=== PATIENT | female | born 1965 | race Caucasian/White ===

== ENCOUNTER 2020-12-07 11:05 | Outpatient (REF) | payer OTHER, MEDICAID, SELFPAY ==
[2020-12-07 14:05] LABS: Hematocrit 41.2 % (37-47); Hemoglobin 13.2 g/dl (12.0-16.0); Mean Corpuscular Hemoglobin 30.8 pg (27.0-33.0); Mean Corpuscular Volume 96.3 fL (80-98); Platelet Count 239 X10*3/uL (160-400); Red Blood Count 4.28 X10*6/uL (4.20-5.50); Red Cell Distribution Width 12.5 % (11.0-16.0); White Blood Count 6.4 X10*3/uL (4.8-10.8)
[2020-12-07 14:50] LABS: Alanine Aminotransferase 13 U/L (0-31); Albumin Level 4.3 g/dL (3.5-5.0); Alkaline Phosphatase 63 U/L (39-117); Anion Gap 11 (12-20); Aspartate Amino Transferase 14 U/L (5-31); Bilirubin Direct 0.2 mg/dL (0.0-0.5); Bilirubin Total 0.7 mg/dL (0.0-1.0); Blood Urea Nitrogen 18 mg/dL (9-16); Calcium 9.3 mg/dL (8.4-10.2); Carbon Dioxide 30 mmol/L (22-29); Chloride 103 mmol/L (96-108); Cholesterol 176 mg/dL; Estimated Glomerular Filt Rate > 60; Glucose Fasting 91 mg/dL (60-99); HDL Cholesterol 84 mg/dL; LDL Cholesterol Calculated 82 mg/dl; Potassium 4.6 mmol/L (3.3-5.1); Sodium 139 mmol/L (135-145); Total Protein 6.9 g/dL (6.5-8.0); Triglycerides 54 mg/dL
[2020-12-07 14:58] LABS: TSH reflex Free T4 0.63 uIU/mL (0.32-4.0)
[2020-12-07 15:05] LABS: Folate > 20.0 ng/mL (> or = 4.0); Vitamin B12 1211 pg/mL (200-900)
== END 2020-12-07 11:06 | disposition home or self-care (01) ==
LOC: HO.WFDLDS 11:05
PROVIDERS: Visit Provider Hospitalist
DX: Z00.00 Encounter for general adult medical examination without abnormal findings (principal); R53.83 Other fatigue
CPT/HCPCS: 36415; 80048; 80061; 80076; 82607; 82746; 84443; 85027

== ENCOUNTER 2021-10-09 18:57 | Outpatient (REF) | payer OTHER, SELFPAY ==
[2021-10-09 20:17] LABS: Influenza A PCR NEGATIVE (Negative); Influenza B PCR NEGATIVE (Negative); Resp Syncy Virus RNA Qual PCR POSITIVE (Negative); SARS COV2 PCR INHOUSE NEGATIVE (Negative)
== END 2021-10-09 18:58 | disposition home or self-care (01) ==
LOC: HO.LNP 18:57
PROVIDERS: Visit Provider Family Medicine
DX: Z20.822 Contact with and (suspected) exposure to COVID-19 (principal); B34.9 Viral infection, unspecified
CPT/HCPCS: 0241U

== ENCOUNTER 2022-01-19 16:10 | Outpatient (REF) | payer OTHER, SELFPAY ==
--- NOTE | ~2022-01-19 | MM_ITS ---
EXAMINATION: MM SCREENING DIGITAL BREAST TOMOSYNTHESIS, BILATERAL CLINICAL INFORMATION: Screening. Asymptomatic. The lifetime risk of breast cancer based on the Tyrer-Cuzick Model is 9%. COMPARISON: Outside mammography: 01/06/2019, 06/05/2017 ([facility]) TECHNIQUE: Digital breast tomosynthesis is performed in both the craniocaudal and mediolateral oblique views along with computer-aided detection (CAD). Synthesized 2D images are generated from the tomosynthesis. FINDINGS: The breasts are heterogeneously dense, which may obscure small masses (ACR BI-RADS breast composition Category c). Parenchymal pattern is similar to prior outside studies. There are scattered bilateral asymmetries and shifting fibroglandular parenchymal densities overall similar to prior studies. There is no significant mass or architectural abnormality. No developing density. Scattered punctate calcifications are again seen in each breast. There is benign coarse calcification retroareolar right breast and posterior upper outer right breast, suggesting degenerating fibroadenomas. There is also a biopsy clip marker mid upper outer right breast. The axilla and skin contours are unremarkable. MM/MM tomosynthesis screening BI IMPRESSION: No significant changes from prior outside studies. ASSESSMENT: BI-RADS 2: Benign RECOMMENDATION: Routine annual mammography screening. This patient's information was entered into a reminder system with a target due date for their next mammogram.
== END 2022-01-19 16:11 | disposition home or self-care (01) ==
LOC: HO.MAMMO 16:10
PROVIDERS: PCP Family Medicine; Visit Provider Family Medicine
DX: Z12.31 Encounter for screening mammogram for malignant neoplasm of breast (principal)
CPT/HCPCS: 77063; 77067

== ENCOUNTER 2022-06-23 12:04 | Outpatient (REF) | payer OTHER, SELFPAY ==
[2022-06-23 13:08] LABS: MANUAL DIFF FLAG NO
[2022-06-23 13:11] LABS: Appearance Urine Clear; Color Urine Yellow; Glucose Urine UA Negative (Negative); Leukocyte Esterase Urine Small (1+) (Negative); Nitrite Urine Negative (Negative); PH 5.5 (5.0-9.0); Specific Gravity - Urine 1.025 (1.005-1.025); UMIC TRIGGER UA YES; Urine Blood Negative (Negative); Urine Ketones Trace mg/dL (Negative); Urine Protein Negative (Neg-Trace)
[2022-06-23 13:13] LABS: Basophils Absolute Auto 0.1 X10*3/uL (0.0-0.2); Basophils Percent Auto 0.8 % (0-2); Eosinophils Absolute Auto 0.1 X10*3/uL (0.0-0.4); Eosinophils Percent Auto 1.3 % (0-4); Hematocrit 40.9 % (37.0-47.0); Hemoglobin 13.4 g/dl (12.0-16.0); Imm Gran Abs Auto 0.02 X10*3/uL (0.00-0.03); Imm Gran Pct Auto 0.3 % (0.0-0.4); Lymphocytes Absolute Auto 1.4 X10*3/uL (1.2-4.9); Lymphocytes Percent Auto 18.2 % (20-40); Mean Corpuscular HGB Conc 32.8 g/dl (31.0-35.0); Mean Corpuscular Hemoglobin 31.5 pg (27.0-33.0); Mean Platelet Volume 10.3 fL (9.4-12.3); Monocytes Absolute Auto 0.5 X10*3/uL (0.1-1.2); Monocytes Percent Auto 6.7 % (2-11); Neutrophils Absolute Auto 5.5 x10*3/uL (2.0-8.3); Neutrophils Percent Auto 72.7 % (45-73); Platelet Count 314 X10*3/uL (160-400); Red Blood Count 4.26 X10*6/uL (4.20-5.50); Red Cell Distribution Width 12.4 % (11.0-16.0); White Blood Count 7.5 X10*3/uL (4.8-10.8)
[2022-06-23 13:25] LABS: Bacteria Urine 2+ (None Seen); Hyaline Casts Urine 0-2 /LPF (0-2); RBC Urine 0-2 /HPF (0-2)
[2022-06-23 13:32] LABS: Alanine Aminotransferase 37 U/L (0-31); Albumin Level 4.5 g/dL (3.5-5.0); Alkaline Phosphatase 82 U/L (39-117); Anion Gap 16 (12-20); Aspartate Amino Transferase 20 U/L (5-31); Bilirubin Total 0.6 mg/dL (0.0-1.0); Blood Urea Nitrogen 18 mg/dL (9-16); Calcium 9.7 mg/dL (8.4-10.2); Carbon Dioxide 27 mmol/L (22-29); Chloride 106 mmol/L (96-108); Cholesterol 188 mg/dL; Estimated Glomerular Filt Rate > 60; Glucose Fasting 121 mg/dL (60-99); HDL Cholesterol 90 mg/dL; LDL Cholesterol Calculated 90 mg/dl; Potassium 3.7 mmol/L (3.3-5.1); Sodium 145 mmol/L (135-145); Total Protein 7.2 g/dL (6.5-8.0); Triglycerides 41 mg/dL
[2022-06-23 13:51] LABS: TSH reflex Free T4 0.89 uIU/mL (0.32-4.0)
== END 2022-06-23 12:05 | disposition home or self-care (01) ==
LOC: HO.HMGCLDS 12:04
PROVIDERS: PCP Family Medicine; Visit Provider Family Medicine
DX: Z00.00 Encounter for general adult medical examination without abnormal findings (principal)
CPT/HCPCS: 36415; 80053; 80061; 81001; 84443; 85025

== ENCOUNTER 2022-07-09 15:30 | Outpatient (REF) | payer OTHER, SELFPAY | END 2022-07-09 15:31 | disposition home or self-care (01) | LOC: HO.LNP 15:30 | PROVIDERS: Visit Provider Family Medicine | DX: Z13.89 Encounter for screening for other disorder (principal) ==

== ENCOUNTER 2022-07-09 16:07 | Outpatient (REF) | payer OTHER, SELFPAY | END 2022-07-09 16:08 | disposition home or self-care (01) | LOC: HO.LAB 16:07 | PROVIDERS: Visit Provider Family Medicine | DX: Z13.89 Encounter for screening for other disorder (principal) ==

== ENCOUNTER 2022-07-10 | Outpatient (REF) | payer OTHER, SELFPAY ==
[2022-07-10 11:50] LABS: Appearance Urine Clear; Color Urine Yellow; Glucose Urine UA Negative (Negative); Leukocyte Esterase Urine Moderate (2+) (Negative); Nitrite Urine Negative (Negative); UMIC TRIGGER UA YES; Urine Blood Negative (Negative); Urine Ketones Trace mg/dL (Negative); Urine Protein Negative (Neg-Trace)
[2022-07-10 11:57] LABS: Bacteria Urine None Seen (None Seen); Hyaline Casts Urine 0-2 /LPF (0-2); RBC Urine 0-2 /HPF (0-2); Squamous Epithelial Cell Urine 0-2 /HPF (0-2)
== END 2022-07-10 00:01 | disposition home or self-care (01) ==
LOC: HO.LNP
PROVIDERS: Visit Provider Family Medicine
DX: N39.0 Urinary tract infection, site not specified (principal)
CPT/HCPCS: 81001; 87086

== ENCOUNTER 2023-02-26 15:36 | Outpatient (REF) | payer OTHER, SELFPAY ==
--- NOTE | ~2023-02-26 | MM_ITS ---
EXAMINATION: MM SCREENING DIGITAL BREAST TOMOSYNTHESIS, BILATERAL CLINICAL INFORMATION: Screening. Asymptomatic. The lifetime risk of breast cancer based on the Tyrer-Cuzick Model is 8.3%. COMPARISON: Mammography: January 19, 2022 and studies dating back to June 05, 2017 TECHNIQUE: Digital breast tomosynthesis is performed in both the craniocaudal and mediolateral oblique views along with computer-aided detection (CAD). Synthesized 2D images are generated from the tomosynthesis. FINDINGS: The breasts are heterogeneously dense, which may obscure small masses (ACR BI-RADS breast composition Category c). There are no significant masses, abnormal calcifications, or other abnormalities. MM/MM tomosynthesis screening BI IMPRESSION: No significant changes from prior exam. ASSESSMENT: BI-RADS 1: Negative RECOMMENDATION: Routine annual mammography screening. This patient's information was entered into a reminder system with a target due date for their next mammogram.
== END 2023-02-26 15:37 | disposition home or self-care (01) ==
LOC: HO.MAMMO 15:36
PROVIDERS: PCP Family Medicine; Visit Provider Family Medicine
DX: Z12.31 Encounter for screening mammogram for malignant neoplasm of breast (principal)
CPT/HCPCS: 77063; 77067

== ENCOUNTER 2023-05-27 16:29 | Outpatient (AMB) | payer OTHER, SELFPAY ==
--- NOTE | 2023-05-27 16:39 | A.OFFPC_ITS ---
Vital Signs 05/27/23 16:41 Height 5 ft 7 in Weight 150 lb 2 oz BMI 23.5 BP 102/68 Blood Pressure Location Lt brachial Position Sitting Pulse 68 Pulse Source Pulse Oximeter Temp 98.4 F Temp Source Oral Pulse Oximetry (%) 97 Intake Visit Reasons: SOB, fatigue, minor chest pain Intake Note: Patient is here with shortness of breath, fatigue since she had a repiratory infection last year. Patient states she gets dizzy, too. Patient stated she needs referral for colonoscopy with Dr. Melendez at [place]. Allergies Seasonal Allergies Allergy (Intermediate, Verified 05/27/23 16:50) Sneezing, watery eyes Tobacco use date assessed: 05/27/23 Dental Screening Dental Screen Date: 05/27/23 Did you have a dental visit in the last 12 months?: Yes Did you have a dental problem in the last 6 months where you did not have access to dental care?: No Was dental information given to patient?: Patient has dentist HPI HPI Comments History of Present Illness Details 58-year-old female present with complaints of shortness of breath, and fatigue. She reports associated dizziness. She notes that her symptoms are intermittent, and occur every day. She notes she had unremarkable cardiac workup. She notes that her symptoms have been present after an upper respiratory infection 1 year ago. She reports smoking a couple hits of cannabis nightly for sleep. She denies cigarette smoking. She denies wheezing, chest pain, or headache. She reports seeing floaters intermittently. She notes she is followed by Ophthalmology. No acute symptoms today. She was last evaluated by her PCP on 07/2022. [facility] Medical History Allergies Bursitis Depression Fibromyalgia IBS (irritable bowel syndrome) Surgical History H/O: hysterectomy History of breast lump removal Hx of cholecystectomy Family History Mother Colon cancer Father Stroke Hypertension Social History Housing: House Alcohol intake: current Alcohol intake frequency: holidays/special occasions only Alcohol type: hard liquor Patient Tobacco Use Status: Never used Tobacco e-Cigarette/Vaping Use: Never Used Second Hand Smoke Exposure: No service: No Current occupational status: employed Current occupational exposures/hazards: No Cognitive needs: No Hearing needs: No Vision needs: No Questionnaire Thrive Questionnaire Date Thrive assessed: 06/16/21 AWAIS-7 AMB Questionnaire AWAIS-7 Date AWAIS - 7 assessed: 06/04/22 Source: Developed by Drs. Sreekanth Wallace, Vilma Danielle, Jean Carvalho and colleagues, with an educational newton from [employer]. Review of Systems Const Details: Const Denies chills, Denies fatigue, Denies fever(s), Denies headache(s) and Denies weakness ENT Denies dizziness and Denies headache(s) Card Denies chest pain, Denies lightheadedness, Denies dyspnea and Denies other (Palpitations) Resp Denies cough, Denies dyspnea, Denies wheezing and Denies other ( shortness of breath) GI Denies abdominal pain, Denies melena, Denies hematochezia, Denies change in bowel habits, Denies dyspepsia and Denies nausea Denies hematuria and Denies dysuria Musc Denies abnormal gait, Denies myalgias, Denies arthralgias, Denies numbness and Denies tingling Skin/Breast Denies rash, Denies unusual bruising and Denies wounds Neuro Denies abnormal gait, Denies dizziness, Denies headache(s), Denies memory loss, Denies numbness, Denies Sensory deficit (Neuro), Denies tingling and Denies weakness Psych Denies anxiety, Denies depression, Denies memory loss Endo Denies cold intolerance, Denies fatigue, Denies heat intolerance, Denies polydipsia and Denies polyuria Aller/Immun Denies wheezing Physical exam (Primary Care) Tobacco/Smoking Status: Tobacco use Status Tobacco use date assessed 01/08/22 05/27/23 16:40 Patient Tobacco Use Status Never used Tobacco 05/27/23 16:40 e-Cigarette/Vaping Use Never Used 05/27/23 16:40 Thrive Assessment: Date of Thrive Assessment Date Thrive assessed 06/16/21 05/27/23 16:40 Const Other: General: no acute distress and well developed Nutritional Appearance: well nourished Orientation/consciousness: patient oriented x3 HENMT Head: Yes normocephalic and Yes atraumatic Eyes General: appearance normal, both eyes and all related structures Pupils: Equal, round and reactive pupils present EOM: EOMs intact bilaterally Resp Effort & Inspection: normal respiratory effort Auscultation: clear to auscultation bilaterally Cardio Rate: regular rate Rhythm: regular rhythm Heart sounds: S1 normal heart sound present, S2 normal heart sound present, no gallops, no murmurs and no rubs, no JVD GI Palpation (GI): No Abdominal aortic bruit present, Soft to palpation, nontender, No hepatosplenomegaly present and No Rebound tenderness present Auscultation: normal bowel sounds General: Yes no CVA tenderness Back/Spine/Pelvis Back: no CVA tenderness Cervical Spine: cervical ROM normal and No Cervical spine tenderness Thoracic/Lumbar Spine: thoraco-lumbar ROM normal, No pain with thoraco-lumbar ROM, No thoracic spinal tenderness and No lumbar spinal tenderness Extrem General: Yes normal to inspection, No edema and No calf tenderness Skin General: warm and dry. Normal skin color. Normal skin turgor Lesions: no lesions Rashes: no rashes Trauma: no lacerations or abrasions Wounds: no wounds Nails: normal Neuro General: patient oriented x3, gait normal and no focal neuro deficit Cranial nerves: Yes Equal, round and reactive pupils present Cognition (Neuro): normal cognition Gait exam (Neuro): Normal gait present Sensory Exam: No Sensory deficit (Neuro) Psych Appearance: grossly normal Affect: normal affect Attitude: cooperative Thought process: Normal thought process present Assessment and Plan Assessment & Plan (1) Fatigue: Code(s): R53.83 - Other fatigue Plan: 58-year-old female present with complaints of shortness of breath, and fatigue. She reports associated dizziness. She notes that her symptoms are intermittent, and occur every day. She notes she had unremarkable cardiac workup. She notes that her symptoms have been present after an upper respiratory infection 1 year ago. No acute symptoms as a sign. Labs ordered. Will check results and make changes to her care plan if warranted. Her symptoms may be attributed to anemia, thyroid disease, vitamin-D deficiency, CHF, hypocalcemia, or dehydration. Asthma inhaler ordered. Use as prescribed. Encouraged to follow-up with Ophthalmology for symptoms of seeing floaters. Follow-up with PCP in 2 weeks or return sooner with worsening or new symptoms Verbalized understanding and agreed with treatment plan. (2) Weakness: Code(s): R53.1 - Weakness Plan: As above (3) Dizziness: Code(s): R42 - Dizziness and giddiness Plan: As above (4) Shortness of breath: Code(s): R06.02 - Shortness of breath Plan: As above Orders: Orders B Type Natriuretic Peptide Today R06.02 - Shortness of breath, R42 - Dizziness and giddiness, R53.1 - Weakness, R53.83 - Other fatigue Comprehensive Met. Panel Today R06.02 - Shortness of breath, R42 - Dizziness and giddiness, R53.1 - Weakness, R53.83 - Other fatigue TSH reflex Free T4 Today R06.02 - Shortness of breath, R42 - Dizziness and giddiness, R53.1 - Weakness, R53.83 - Other fatigue Vitamin D 25-OH Total Today R06.02 - Shortness of breath, R42 - Dizziness and giddiness, R53.1 - Weakness, R53.83 - Other fatigue Complete Blood Count Auto Diff Today R06.02 - Shortness of breath, R42 - Dizziness and giddiness, R53.1 - Weakness, R53.83 - Other fatigue Medications: New albuterol sulfate 90 mcg/actuation 2 puffs inhalation Q4-6H PRN 8.5 grams 0RF shortness of breath or wheezing Coding Level of Care Code Est Pt Level 3 (83601) Diagnoses Fatigue R53.83 Weakness R53.1 Dizziness R42 Shortness of breath R06.02
[2023-05-27 16:41] VITALS: BP 102/68; PULSE 68; TEMP 36.9; O2SAT 97; BMI 23.5
== END 2023-05-27 17:18 | disposition home or self-care (01) ==
PROVIDERS: PCP Family Medicine; Visit Provider Nurse Practitioner Family
DX: R53.83 Other fatigue (principal); R53.1 Weakness; R42 Dizziness and giddiness; R06.02 Shortness of breath
CPT/HCPCS: 99213

== ENCOUNTER 2023-06-20 16:33 | Outpatient (AMB) | payer OTHER, SELFPAY ==
--- NOTE | 2023-06-20 16:37 | A.OFFPC_ITS ---
Vital Signs 06/20/23 16:38 Height 5 ft 7 in Weight 150 lb BMI 23.5 BP 128/70 Blood Pressure Location Rt brachial Position Sitting Respiration 12 Pulse 76 Pulse Source Pulse Oximeter Temp 97.7 F Temp Source Temporal Artery Scan Pulse Oximetry (%) 98 Intake Visit Reasons: f/u SOB, fatigue, weakness, dizziness Intake Note: Patient states would like to go over her fibromyalgia. Patient states that her back has been killing her as well as both hips have been hurting and its been effecting her sleep and she has low energy to do day to day activities and experiences pain when doing day to day activities. Patient states she got blood work done at [place] and stated that they should be sending over labs. Jewelry Coater Required: No Accompanied by: Self / Same As Patient Allergies Seasonal Allergies Allergy (Intermediate, Verified 06/20/23 16:47) Sneezing, watery eyes Tobacco use date assessed: 05/27/23 Dental Screening Dental Screen Date: 06/20/23 Did you have a dental visit in the last 12 months?: No Did you have a dental problem in the last 6 months where you did not have access to dental care?: No Was dental information given to patient?: Patient has dentist HPI f/u SOB, fatigue, weakness, dizziness HPI Details 58 y/o female presents to f/u shortness of breath, weakness, and dizziness. Labs were drawn 06/03/23. Labs were fine. Had been given an albuterol inhaler and pt reports shortness of breath improved. Pt has ongoing concerns about her fibromyalgia. She has trialed duloxetine before and had failed. [facility] Medical History Bursitis IBS (irritable bowel syndrome) Depression Allergies Fibromyalgia Surgical History H/O: hysterectomy Hx of cholecystectomy History of breast lump removal Family History Mother Colon cancer Father Stroke Hypertension Social History Housing: House Alcohol intake: current Alcohol intake frequency: holidays/special occasions only Alcohol type: hard liquor Patient Tobacco Use Status: Never used Tobacco e-Cigarette/Vaping Use: Never Used Second Hand Smoke Exposure: No service: No Current occupational status: employed Current occupational exposures/hazards: No Cognitive needs: No Hearing needs: No Vision needs: No Questionnaire Thrive Questionnaire Date Thrive assessed: 06/16/21 AWAIS-7 AMB Questionnaire AWAIS-7 Date AWAIS - 7 assessed: 06/04/22 Source: Developed by Drs. Sreekanth Wallace, Vilma Danielle, Jean Carvalho and colleagues, with an educational newton from [employer]. Review of Systems Const Denies chills, Denies fatigue, Denies fever(s), Denies headache(s) and Denies weakness ENT Denies dizziness and Denies headache(s) Card Denies chest pain, Denies lightheadedness, Denies dyspnea and Denies other (Palpitations) Resp Denies cough, Denies dyspnea, Denies wheezing and Denies other ( shortness of breath) Musc Denies numbness and Denies tingling Neuro Denies dizziness, Denies headache(s), Denies numbness, Denies tingling, Denies paresthesias and Denies weakness Psych Denies anxiety and Denies depression Endo Denies fatigue Aller/Immun Denies wheezing Physical exam (Primary Care) Vital Signs: Last Vital Signs Temp 97.7 F 06/20/23 16:38 Pulse 76 06/20/23 16:38 Resp 12 06/20/23 16:38 BP 128/70 06/20/23 16:38 Pulse Ox 98 06/20/23 16:38 BMI result Body Mass Index 23.5 Tobacco/Smoking Status: Tobacco use Status Tobacco use date assessed 05/27/23 06/20/23 16:44 Patient Tobacco Use Status Never used Tobacco 06/20/23 16:44 e-Cigarette/Vaping Use Never Used 06/20/23 16:44 Thrive Assessment: Date of Thrive Assessment Date Thrive assessed 06/16/21 06/20/23 16:44 Const General: no acute distress and well developed Nutritional Appearance: well nourished Orientation/consciousness: patient oriented x3 HENMT Head: Yes normocephalic and Yes atraumatic Eyes General: appearance normal, both eyes and all related structures Pupils: Equal, round and reactive pupils present EOM: EOMs intact bilaterally Resp Effort & Inspection: normal respiratory effort Auscultation: clear to auscultation bilaterally Cardio Rate: regular rate Rhythm: regular rhythm Heart sounds: S1 normal heart sound present, S2 normal heart sound present, no gallops, no murmurs and no rubs Neuro General: patient oriented x3 and gait normal Cranial nerves: Yes Equal, round and reactive pupils present Psych Affect: normal affect Assessment and Plan Assessment & Plan (1) Shortness of breath: Code(s): R06.02 - Shortness of breath Plan: Ongoing intermittent shortness of breath though this has improved with albuterol. She can continue this. Checking PFTs (2) Fibromyalgia: Code(s): M79.7 - Fibromyalgia Plan: Worsening fibromyalgia pain. She gets some relief from pregabalin and had been taking up to 300 mg daily which was helping significantly but caused weight gain. Currently taking 150 mg daily. She can try alternating 300 mg/150 mg every other day or up to 300 mg daily and see if she still has difficulties with weight gain. We discussed switching venlafaxine to duloxetine. I did see 1 mention of failure of duloxetine therapy but I do not see duloxetine in her past medications. We can consider this along with pregabalin in the future if needed. For now she will continue venlafaxine She had been going to [facility] but was painful office is no longer open. Was getting injection therapy in there which was helping. I am referring her to [facility] pain management. (3) Screening for colon cancer: Code(s): Z12.11 - Encounter for screening for malignant neoplasm of colon Plan: Patient is seen by Dr. Melendez. She says she is due for colonoscopy. She was considering a new referral but has decided she will stay with Dr. Melendez. Recommended she follow-up as she notes that she is due for colonoscopy. Orders: Orders RT pft w methacholine Today R06.02 - Shortness of breath Referrals Pain Management Referral M25.551 - Pain in right hip, M25.552 - Pain in left hip, M79.7 - Fibromyalgia Medications: Changed From pregabalin Prior Trial on Duloxetine failed 150 mg PO DAILY 3 months 90 caps 2RF To pregabalin Prior Trial on Duloxetine failed 300 mg (2 x 150 mg) PO DAILY 180 caps 2RF 3 months From albuterol sulfate 90 mcg/actuation 2 puffs inhalation Q4-6H PRN 8.5 grams 0RF shortness of breath or wheezing To albuterol sulfate 90 mcg/actuation 2 puffs inhalation Q4-6H PRN 8.5 grams 4RF shortness of breath or wheezing 30 days Coding Level of Care Code Est Pt Level 3 (56190) Diagnoses Shortness of breath R06.02 Fibromyalgia M79.7 Screening for colon cancer Z12.11
[2023-06-20 16:38] VITALS: BP 128/70; PULSE 76; RESP 12; TEMP 36.5; O2SAT 98; BMI 23.5
== END 2023-06-20 17:11 | disposition home or self-care (01) ==
PROVIDERS: PCP Family Medicine; Visit Provider Family Medicine
DX: R06.02 Shortness of breath (principal); M79.7 Fibromyalgia; Z12.11 Encounter for screening for malignant neoplasm of colon
CPT/HCPCS: 99213

== ENCOUNTER 2023-06-25 14:57 | Outpatient (AMB) | payer OTHER, SELFPAY ==
--- NOTE | 2023-06-25 15:07 | MHC.OFFVIS ---
Intake Vital Signs 06/25/23 15:14 Height 5 ft 7 in Weight 146 lb BMI 22.9 BP 113/65 Blood Pressure Location Lt brachial Position Sitting Respiration 16 Pulse 80 Pulse Source Pulse Oximeter Pulse Oximetry (%) 95 Oxygen Delivery Method Room Air Intake Visit Reasons: fibromyalgia Allergies Seasonal Allergies Allergy (Intermediate, Verified 06/25/23 15:07) Sneezing, watery eyes HPI HPI Comments History of Present Illness Details Abbie is a very pleasant 4-year-old female who presents to the office today for evaluation management of her chronic lower back pain. Patient reports several years of pain across her lower back, radiating into the buttocks. Patient reports on the right side pain radiates also into her thigh but does not go past the level of the knee. Pain today is rated as a 5/10. She she has tried physical therapy in the past without relief. She currently does home exercise program without relief of her pain. She has tried chiropractor in the past that provided little benefit. She has never tried acupuncture or massage. She currently takes Lyrica as prescribed by her primary care doctor for fibromyalgia but states this does not help her lower back pain. Patient previously received sacroiliac joint injections at [facility], last 1 was several years ago. She states that this provided relief of her pain. Patient reports the pain is worse with ascending and descending stairs, sitting for extended period of time or standing for extended period of time. She does walk 3 miles a day and feels that keeping active is helping some. In terms of muscle damage conditions describes aching, stabbing, sharp, shooting, tiring and exhausting. Pain is negatively impacting patient's enjoyment of life, general activity, normal work, recreational activities, sleep and walking. [facility] Medical History Bursitis IBS (irritable bowel syndrome) Depression Allergies Fibromyalgia Surgical History H/O: hysterectomy Hx of cholecystectomy History of breast lump removal Family History Mother Colon cancer Father Stroke Hypertension Social History Housing: House Alcohol intake: current Alcohol intake frequency: holidays/special occasions only Alcohol type: hard liquor Patient Tobacco Use Status: Never used Tobacco e-Cigarette/Vaping Use: Never Used Second Hand Smoke Exposure: No service: No Current occupational status: employed Current occupational exposures/hazards: No Cognitive needs: No Hearing needs: No Vision needs: No Review of Systems Const All systems reviewed & are unremarkable except as noted in HPI and below Physical Exam Vital Signs: Last Vital Signs Pulse 80 06/25/23 15:14 Resp 16 06/25/23 15:14 BP 113/65 06/25/23 15:14 Pulse Ox 95 06/25/23 15:14 Oxygen Delivery Method Room Air 06/25/23 15:14 BMI result Body Mass Index 22.9 General: awake, alert, oriented. Answers questions appropriately. Fully engaged in examination. Skin: warm, dry, intact HEENT: Normocephalic. Hearing intact. Cardiac: External chest normal in appearance. Respiratory: No cough, audible wheezing or stridor. Abdomen: without gross distension. MS: No obvious swelling or deformities. Able to stand on bilateral tiptoes and bilateral heels.? Able to transition from sit to stand unassisted. Ambulates with bilaterally normal heel strike and toe off Tender to palpation over PSIS ROM: with extension to 15 degrees. flexion to 90 degrees Strength: 5/5 BLE Sensation: intact and symmetric BLE DTR: intact and symmetric Straight leg raises with and without dorsiflexion negative bilaterally Facet loading negative bilaterally ADIA positive bilaterally Gaenslens positive bilaterally Thigh thrust positive bilaterally SI compression positive bilaterally Neurological: Oriented to person, place, time and situation. Thought process intact. No gait abnormalities appreciated. Psychiatric: Appropriate mood and affect. Good judgment and insight. Assessment & Plan Assessment & Plan (1) Sacroiliac joint dysfunction of both sides: Code(s): M53.3 - Sacrococcygeal disorders, not elsewhere classified (2) Fibromyalgia: Code(s): M79.7 - Fibromyalgia Plan Abbie is a very pleasant 58-year-old female who presents the office today for evaluation and management of her chronic lower back pain. History, physical exam and provocative testing consistent with bilateral sacroiliac joint dysfunction. Discussed options for treatment including diagnostic interventional testing, steroid injections, peripheral nerve stimulation with Sprint, RFA and more permanent neuromodulation. Patient has failed conservative therapy including NSAIDs, Tylenol and home exercise program. Will schedule for fluoroscopy guided bilateral therapeutic sacroiliac joint injections with local anesthetic. All questions and concerns have been answered and patient agrees with the plan. Follow up after injections and sooner if needed. Coding Level of Care Code New Pt Level 4 (42080) Diagnoses Sacroiliac joint dysfunction of both sides M53.3 Fibromyalgia M79.7
[2023-06-25 15:14] VITALS: BP 113/65; PULSE 80; RESP 16; O2SAT 95; BMI 22.9
== END 2023-06-25 15:33 | disposition home or self-care (01) ==
PROVIDERS: PCP Family Medicine; Visit Provider Registered Nurse Emergency
DX: M53.3 Sacrococcygeal disorders, not elsewhere classified (principal); M79.7 Fibromyalgia
CPT/HCPCS: 99204

== ENCOUNTER → 2023-06-25 14:57 | Outpatient (BNVA) | payer OTHER, SELFPAY | PROVIDERS: PCP Family Medicine; Visit Provider Registered Nurse Emergency ==

== ENCOUNTER 2023-11-13 15:53 | Outpatient (AMB) | payer OTHER, SELFPAY ==
--- NOTE | 2023-11-13 16:02 | A.OFFPC_ITS ---
Vital Signs 11/13/23 16:03 Height 5 ft 7 in Weight 143 lb BMI 22.4 BP 124/62 Blood Pressure Location Lt brachial Position Sitting Pulse 91 Pulse Source Pulse Oximeter Pulse Oximetry (%) 96 Oxygen Delivery Method Room Air Intake Visit Reasons: f/u fibromyalgia Intake Note: Patient is here to follow up on firbomyalgia Allergies Seasonal Allergies Allergy (Intermediate, Verified 11/13/23 16:08) Sneezing, watery eyes Tobacco use date assessed: 11/13/23 HPI f/u fibromyalgia HPI Details 58 y/[facility] Had seen pain mangement 06/25/23. Had discussed options for treatment including diagnostic interventional testing, steroid injections, peripheral nerve stimlation, RFA and more permanent neuromodulation. She reports she is taking pregabalin 300mg one day and 150mg the other which she says is helping. She had concerns about weight before on pregabalin but she has lost about 3 lbs since the last office visit. [facility] Medical History Bursitis IBS (irritable bowel syndrome) Depression Allergies Fibromyalgia Surgical History H/O: hysterectomy Hx of cholecystectomy History of breast lump removal Family History Mother Colon cancer Father Stroke Hypertension Social History Housing: House Alcohol intake: current Alcohol intake frequency: holidays/special occasions only Alcohol type: hard liquor Patient Tobacco Use Status: Never used Tobacco e-Cigarette/Vaping Use: Never Used Second Hand Smoke Exposure: No service: No Current occupational status: employed Current occupational exposures/hazards: No Cognitive needs: No Hearing needs: No Vision needs: No Questionnaire PHQ-9 Over the last 2 weeks, how often have you been bothered by any of the following problems? 1. Little interest or pleasure in doing things: several days 2. Feeling down, depressed, or hopeless: several days 3. Trouble falling or staying asleep, or sleeping too much: several days 4. Feeling tired or having little energy: nearly every day 5. Poor appetite or overeating: not at all 6. Feeling bad about yourself - or that you are a failure or have let yourself or your family down: several days 7. Trouble concentrating on things, such as reading the newspaper or watching television: nearly every day 8. Moving or speaking so slowly that other people could have noticed. Or the opposite - being so fidgety or restless that you have been moving around a lot more than usual: nearly every day 9. Thoughts that you would be better off or of hurting yourself in some way: not at all Total score: 13 Depression Screening Interpretation: Positive Depression Screening Done: Yes Source: Developed by Drs. Sreekanth Wallace, Vilma Danielle, Jean Carvalho and colleagues, with an educational newton from [email or web address]. Thrive Questionnaire Date Thrive assessed: 11/13/23 I am a: Patient What is your living situation today?: I have a steady place to live Within the past 12 months, did the food you bought not last and you didn't have the money to get more?: Never true Within the past 12 months, did you worry whether your food would run out before you got money to buy more?: Never true Do you have trouble paying for medicines?: No Do you have trouble getting transportation to medical appointments?: No Do you have trouble paying your heating and electricity bill?: No Do you have trouble taking care of your child, family member or friend?: No Do you have trouble with day-to-day activities such as bathing, preparing meals, shopping, managing finances, etc.?: No Are you currently unemployed and looking for a job?: No Are you interested in more education?: No THRIVE Score: 0 AUDIT C Alcohol Use Questionnaire (AUDIT-C) 1. How often do you have a drink containing alcohol?: Monthly or less 2. How many drinks containing alcohol do you have on a typical day when you are drinking?: 3 or 4 3. How often do you have six or more drinks on one occasion?: Never Total Score: 2 AWAIS-7 AMB Questionnaire AWAIS-7 Date AWAIS - 7 assessed: 11/13/23 Feeling nervous, anxious, or on edge: 3 = Nearly every day Not being able to stop or control worryin = Nearly every day Worrying too much about different things: 1 = Several days Trouble relaxin = Not at all Being so restless that it is hard to sit still: 1 = Several days Becoming easily annoyed or irritable: 1 = Several days Feeling afraid as if something awful might happen: 1 = Several days Total AWAIS-7 score (0-4 normal; 5-9 mild; 10-14 moderate; 15-21 severe): 10 Source: Developed by Drs. Sreekanth Wallace, Vilma Danielle, Jean Carvalho and colleagues, with an educational newton from [email or web address]. Physical exam (Primary Care) Vital Signs: Last Vital Signs Pulse 91 11/13/23 16:03 BP 124/62 11/13/23 16:03 Pulse Ox 96 11/13/23 16:03 Oxygen Delivery Method Room Air 11/13/23 16:03 BMI result Body Mass Index 22.4 Tobacco/Smoking Status: Tobacco use Status Tobacco use date assessed 11/13/23 11/13/23 16:13 Patient Tobacco Use Status Never used Tobacco 11/13/23 16:13 e-Cigarette/Vaping Use Never Used 11/13/23 16:13 PHQ-9: PHQ-9 Score PHQ-9: Total score 13 11/13/23 16:36 Depression Screening Interpretation: Positive Thrive Assessment: Date of Thrive Assessment Date Thrive assessed 11/13/23 11/13/23 16:22 Assessment and Plan Assessment & Plan (1) Fibromyalgia: Code(s): M79.7 - Fibromyalgia Plan: Ongoing?fibromyalgia? pain?and?patient?also?notes?that?she?has?bilateral?trochanteric?bursitis She?was?planning?to?see?pain?management?regarding?injection?therapy?for?sacral?a nd?hip?pain?but?had?to?hold?off?on?this?due?to?insurance.??She?plans?to?follow- up?with?them?again?soon. I?think?that?would?be?helpful?as?if?she?can?get?better?pain?control?she?will?be? able?to?exercise?more?which?is?important?for?overall?fibromyalgia?treatment. She?is?taking?pregabalin?300?mg/150?mg?every?other?day?and?this?seems?to?be?help ing?without?causing?weight?gain.??She?will?continue?this?regimen Will?also?give?her?meloxicam?and?she?can?try?topical?diclofenac?as?well. We?have?discussed?switching?venlafaxine?duloxetine?but?we?may?consider?something ?like?this?in?the?future?if?the?above?are?not?effective?enough. Medications: New diclofenac sodium 1% apply to single knee, ankle, foot; for foot includes sole/toes/top of foot 4 grams topical QID 30 days PRN 200 grams 2RF pain meloxicam 15 mg PO DAILY 30 days 30 tabs 2RF Coding Level of Care Code Est Pt Level 3 (62297) Diagnoses Fibromyalgia M79.7
[2023-11-13 16:03] VITALS: BP 124/62; PULSE 91; O2SAT 96; BMI 22.4
== END 2023-11-13 16:46 | disposition home or self-care (01) ==
PROVIDERS: PCP Family Medicine; Visit Provider Family Medicine
DX: M79.7 Fibromyalgia (principal)
CPT/HCPCS: 99213

== ENCOUNTER 2024-02-13 06:18 | Outpatient (REF) | payer OTHER, SELFPAY ==
--- NOTE | ~2024-02-13 | FL_ITS ---
EXAMINATION: XR FLUOROSCOPY WITH IMAGES CLINICAL INFORMATION: Sacrococcygeal disorders. COMPARISON: None available. TECHNIQUE: Fluoroscopy Supervised By: Dr. Osorio. Fluoroscopy Time: 0.2 min. Cumulative Dose: 3.78 mGy. DAP: 0.0253 Gycm2. Images: 4. FINDINGS: Intraoperative fluoroscopy and spot films were performed during a procedure in the OR. Holcomb are seen overlying both the right and left SI joints. Please see Dr. Osorio' report for complete details. FL/FL guidance in treatment room IMPRESSION: Intraoperative fluoroscopy and spot films were obtained. Please see Dr. Osorio' report for complete details.
== END 2024-02-13 06:19 | disposition home or self-care (01) ==
LOC: CF 06:18
PROVIDERS: Visit Provider Internal Medicine
DX: M53.3 Sacrococcygeal disorders, not elsewhere classified (principal)
CPT/HCPCS: 27096; J2795; J3301

== ENCOUNTER 2024-02-13 10:10 | Outpatient (AMB) | payer OTHER, SELFPAY ==
--- NOTE | 2024-02-13 10:15 | A.OFFVIS_ITS ---
Vital Signs 02/13/24 10:16 02/13/24 11:07 Height 5 ft 7 in Weight 143 lb BMI 22.4 BP 116/68 124/72 Blood Pressure Location Lt brachial Lt brachial Position Sitting Sitting Respiration 16 18 Pulse 70 72 Pulse Source Pulse Oximeter Pulse Oximeter Pulse Oximetry (%) 99 94 Oxygen Delivery Method Room Air Room Air Comment Pre-Op Post-Op Intake Visit Reasons: mariaa theraputic SIJ inj Allergies Seasonal Allergies Allergy (Intermediate, Verified 11/13/23 16:08) Sneezing, watery eyes HPI HPI mariaa theraputic SIJ inj: Details: Patient presents for scheduled procedure. Denies any recent cough, cold, infection, fever or other significant changes in medical history since last office visit. PFSH Medical History Bursitis IBS (irritable bowel syndrome) Depression Allergies Fibromyalgia Surgical History H/O: hysterectomy Hx of cholecystectomy History of breast lump removal Family History Mother Colon cancer Father Stroke Hypertension Social History Housing: House Alcohol intake: current Alcohol intake frequency: holidays/special occasions only Alcohol type: hard liquor Patient Tobacco Use Status: Never used Tobacco e-Cigarette/Vaping Use: Never Used Second Hand Smoke Exposure: No service: No Current occupational status: employed Current occupational exposures/hazards: No Cognitive needs: No Hearing needs: No Vision needs: No Physical Exam Vital Signs: Last Vital Signs Pulse 72 02/13/24 11:07 Resp 18 02/13/24 11:07 BP 124/72 02/13/24 11:07 Pulse Ox 94 02/13/24 11:07 Oxygen Delivery Method Room Air 02/13/24 11:07 BMI result Body Mass Index 22.4 Office Procedures Joint Injection/Drain Joint Injection/Drain Details: Sacroiliac Joint Injection, Bilateral The procedure, its benefits, and its risks were explained and written informed consent was obtained from the patient. Immediately prior to starting the procedure, a time-out safety check was conducted. The patient's identification, procedure name, procedure site, and procedure laterality were confirmed with the patient. ? Patient was placed prone on the fluoroscopy table and the lumbosacral area was prepped using ChloraPrep and draped with sterile drapein standard fashion. The C-arm was rotated in a contralateral oblique fashion until the medial border of the iliac crest no longer foreshadowed the posterior sacroiliac joint line. The skin and subcutaneous tissue was anesthetized using 1 mL of 0.75% plain lidocaine with 1.5-inch 25-gauge needle in the middle region of the joint line. A 3.5-inch 22-gauge spinal needle with small bend on the tip was slowly advanced towards the joint line, coaxial to the x-ray beam. Once bony content was obtained, the needle was easily slid into the intra-articular space.? Intra- articular needle position was confirmed using lateral fluoroscopy.? A total volume of 2.5mL of solution containing 40 mg Triamcinilone and rest 0.5% of ropivacaine was injected intra-articularly. The stylet was reinserted and needle was removed. The patient tolerated the procedure well. Patient denied any lower extremity weakness or numbness. Patient was observed for 30 min and was discharged after fulfilling the standard discharge criteria. Coding 84375 - Sacroiliac (bilateral) Procedure code (CPT) selection complete Assessment & Plan Assessment & Plan (1) Sacroiliac joint dysfunction of both sides: Code(s): M53.3 - Sacrococcygeal disorders, not elsewhere classified Category: Medical Plan Patient is status post bilateral therapeutic sacroiliac joint injection. Patient tolerated procedure well and was discharged home in stable condition with discharge instructions. All questions were answered. We will follow-up via telephone or in clinic to assess response to therapy. A follow-up appointment was made during today's visit. Orders: Orders FL guidance in treatment room Today M53.3 - Sacrococcygeal disorders, not elsewhere classified Coding Level of Care Code Procedure Only Diagnoses Sacroiliac joint dysfunction of both sides M53.3 CPT Codes Coding - Joint 9: 72384 - Sacroiliac ([id number])
[2024-02-13 10:16] VITALS: BP 116/68; PULSE 70; RESP 16; O2SAT 99; BMI 22.4
[2024-02-13 11:07] VITALS: BP 124/72; PULSE 72; RESP 18; O2SAT 94
== END 2024-02-13 10:53 | disposition home or self-care (01) ==
LOC: HO.PMCPRC 10:10
PROVIDERS: PCP Family Medicine; Visit Provider Internal Medicine
DX: M53.3 Sacrococcygeal disorders, not elsewhere classified (principal)
CPT/HCPCS: 27096

== ENCOUNTER 2024-05-06 16:30 | Outpatient (AMB) | payer OTHER, SELFPAY ==
--- NOTE | 2024-05-06 16:44 | A.OFFPC_ITS ---
Vital Signs 05/06/24 16:48 Height 5 ft 6 in Weight 151 lb 4 oz BMI 24.4 BP 130/96 H Blood Pressure Location Rt brachial Position Sitting Respiration 18 Pulse 80 Pulse Source Palpation Temp 98.3 F Temp Source Tympanic Intake Visit Reasons: f/u fibromyalgia Intake Note: follow up for back injections and fibromyalgia, med refill Is last menstrual period known: No Post menopausal: Yes Patient : No Allergies Seasonal Allergies Allergy (Intermediate, Verified 05/06/24 16:44) Sneezing, watery eyes Tobacco use date assessed: 05/06/24 Dental Screening Dental Screen Date: 06/20/23 HPI f/u fibromyalgia HPI Details 59 y/o female presents to f/u fibromyalg ia. She is on pregabalin and also had given her meloxicam and topical diclofenac last office visit. Pt notes back injections had not helped. She reports ongoing fibromyalgia/pain. [facility] Medical History Bursitis IBS (irritable bowel syndrome) Depression Allergies Fibromyalgia Surgical History H/O: hysterectomy Hx of cholecystectomy History of breast lump removal Family History Mother Colon cancer Father Stroke Hypertension Social History Housing: House Alcohol intake: current Alcohol intake frequency: holidays/special occasions only Alcohol type: hard liquor Patient Tobacco Use Status: Never used Tobacco e-Cigarette/Vaping Use: Currently Using Second Hand Smoke Exposure: No service: No Current occupational status: employed Current occupational exposures/hazards: No Cognitive needs: No Hearing needs: No Vision needs: No Questionnaire Thrive Questionnaire Date Thrive assessed: 11/13/23 AWAIS-7 AMB Questionnaire AWAIS-7 Date AWAIS - 7 assessed: 11/13/23 Source: Developed by Drs. Sreekanth Wallace, Vilma Danielle, Jean Carvalho and colleagues, with an educational newton from [email or web address]. Review of Systems Const Denies chills, Denies fatigue, Denies fever(s), Denies headache(s) and Denies weakness ENT Denies dizziness and Denies headache(s) Card Denies dyspnea Resp Denies cough, Denies dyspnea, Denies wheezing and Denies other (shortness of breath) Musc Denies numbness and Denies tingling Neuro Denies dizziness, Denies headache(s), Denies numbness, Denies tingling and Denies weakness Psych Denies anxiety and Denies depression Endo Denies fatigue Aller/Immun Denies wheezing Physical exam (Primary Care) Vital Signs: Last Vital Signs Temp 98.3 F 05/06/24 16:48 Pulse 80 05/06/24 16:48 Resp 18 05/06/24 16:48 BP 130/96 H 05/06/24 16:48 BMI result Body Mass Index 24.4 Tobacco/Smoking Status: Tobacco use Status Tobacco use date assessed 05/06/24 05/06/24 16:52 Patient Tobacco Use Status Never used Tobacco 05/06/24 16:52 e-Cigarette/Vaping Use Currently Using 05/06/24 16:52 Thrive Assessment: Date of Thrive Assessment Date Thrive assessed 11/13/23 05/06/24 16:52 Const General: well developed; No acute distress Nutritional Appearance: well nourished Orientation/consciousness: patient oriented x3 HENMT Head: Yes normocephalic and Yes atraumatic Eyes General: appearance normal, both eyes and all related structures Pupils: Equal, round and reactive pupils present EOM: EOMs intact bilaterally Resp Effort & Inspection: normal respiratory effort Neuro General: patient oriented x3 and gait normal Cranial nerves: Yes Equal, round and reactive pupils present Psych Affect: normal affect Assessment and Plan Assessment & Plan (1) Fibromyalgia: Code(s): M79.7 - Fibromyalgia Plan: Ongoing?fibromyalgia?pain?in?upper?arms?and?hips?and?SI?joint Had?SI?injections?without?much?relief Patient?feels?that?the?diclofenac?helps?a?little?but?is?not?sure?meloxicam?has?d one?anything We?had?discussed?at?last?visit?switching?venlafaxine?to?Cymbalta?as?this?may?imp rove?fibromyalgia?pain She?is?taking?pregabalin?with?this?affect Switch?to?Cymbalta Continue?pregabalin?and?diclofenac?gel Follow-up?with?pain?management If?still?not?improving,?she?would?be?a?candidate?for?a?stronger?med ication?at?bedtime?such?as?tramadol.??We?can?discuss?this?at?her?next?visit?if?n ecessary Orders: Orders Complete Blood Count Auto Diff Today Z00.00 - Encounter for general adult medical examination without abnormal findings TSH reflex Free T4 Today Z00.00 - Encounter for general adult medical examination without abnormal findings Comprehensive [place]. Panel Fast Today Z00.00 - Encounter for general adult medical examination without abnormal findings Lipid Panel Today Z00.00 - Encounter for general adult medical examination without abnormal findings Microalbumin, Random (w Creat) Today I10 - Essential (primary) hypertension UA and rflx microscopic Today Z00.00 - Encounter for general adult medical examination without abnormal findings Medications: New duloxetine (Cymbalta) 30 mg PO BID 30 days 60 caps 2RF Refilled clonazepam 30 tablets per 30 days; p.r.n. dosing. MassPat verified. Partial refill upon request. 0.5 mg PO BID 30 days PRN 30 tabs 0RF anxiety diclofenac sodium 1% apply to single knee, ankle, foot; for foot includes sole/toes/top of foot 4 grams topical QID 30 days PRN 200 grams 3RF pain Discontinued venlafaxine ER Discontinued Reason: Doctor's Order 150 mg PO DAILY 90 days 90 caps 3RF Coding Level of Care Code Est Pt Level 3 (72432) Diagnoses Fibromyalgia M79.7
[2024-05-06 16:48] VITALS: BP 130/96; PULSE 80; RESP 18; TEMP 36.8; BMI 24.4
== END 2024-05-06 17:05 | disposition home or self-care (01) ==
PROVIDERS: PCP Family Medicine; Visit Provider Family Medicine
DX: M79.7 Fibromyalgia (principal)
CPT/HCPCS: 99213

== ENCOUNTER 2024-06-23 16:24 | Outpatient (REF) | payer OTHER, SELFPAY ==
--- NOTE | ~2024-06-23 | MM_ITS ---
EXAMINATION: MM SCREENING DIGITAL BREAST TOMOSYNTHESIS, BILATERAL CLINICAL INFORMATION: Screening. Asymptomatic. COMPARISON: Mammography: Comparison is made with available priors TECHNIQUE: Digital breast mammography with tomosynthesis is performed in both the craniocaudal and mediolateral oblique views along with computer-aided detection (CAD). FINDINGS: The breasts are heterogeneously dense, which may obscure small masses (ACR BI-RADS breast composition Category c). There are no significant masses, abnormal calcifications, or other abnormalities. MM/MM tomosynthesis screening BI IMPRESSION: No mammographic evidence of malignancy. ASSESSMENT: BI-RADS BI-RADS 1 - Negative RECOMMENDATION: Routine annual mammography screening. 1 year F/U This examination should not preclude the clinical evaluation of a suspicious palpable abnormality. This patient's information was entered into a reminder system with a target due date for their next mammogram. Electronically signed by: Ekaterina Alva DO 07/07/2024 04:21 PM EDT
== END 2024-06-23 16:25 | disposition home or self-care (01) ==
LOC: HO.MAMMO 16:24
PROVIDERS: PCP Family Medicine; Visit Provider Family Medicine
DX: Z12.31 Encounter for screening mammogram for malignant neoplasm of breast (principal)
CPT/HCPCS: 77063; 77067

== ENCOUNTER → 2024-06-23 16:30 | Outpatient (BNV) | payer OTHER, SELFPAY | PROVIDERS: PCP Family Medicine; Visit Provider Internal Medicine | DX: Z12.31 Encounter for screening mammogram for malignant neoplasm of breast (principal) | CPT/HCPCS: 77063; 77067 ==

== ENCOUNTER 2025-03-22 14:38 | Inpatient (IN) | payer OTHER, SELFPAY ==
--- NOTE | 2025-03-22 16:01 | P.CONHOSP_ITS ---
History of Present Illness Data of Consult Service Date: 03/22/25 Primary Care Provider: Unknown Physician HPI Reason for consult: Medical H&P 60-year-old female with a past medical history of fibromyalgia and anxiety and depressive disorder presented to [facility] with suicidal ideation. Patient has a superficial cut on her left wrist. On Admission her CBC and CMP were within normal limits. She denies any medical concerns. Patient is admitted for further care. She is followed by Dr. Squires for her fibromyalgia, takes Lyrica for this. On exam she is weepy, denies any shortness of breath, chest pain, dizziness or any other concerning symptoms. Review of Systems Review of Systems: Denies any shortness of breath, chest pain, dizziness, lightheadedness, abdominal pain or discomfort, nausea vomiting or diarrhea PMFSH Medical History Bursitis IBS (irritable bowel syndrome) Depression Allergies Fibromyalgia Family History Mother Colon cancer Father Stroke Hypertension Surgical History H/O: hysterectomy Hx of cholecystectomy History of breast lump removal Social History Housing: House Alcohol intake: current Alcohol intake frequency: holidays/special occasions only Alcohol type: hard liquor Patient Tobacco Use Status: Never used Tobacco e-Cigarette/Vaping Use: Currently Using Second Hand Smoke Exposure: No Advance Directives: No Advance Directives Information Provided: Yes service: No Current occupational status: employed Current occupational exposures/hazards: No Cognitive needs: No Hearing needs: No Vision needs: No Meds Allergies Allergy/AdvReac Type Severity Reaction Status Date / Time Seasonal Allergies Allergy Intermediate Sneezing, Verified 05/06/24 16:44 watery eyes Active Medications: Current Medications Acetaminophen (Acetaminophen 325 Mg Tablet) 650 mg PO Q6H PRN PRN Reason: Headache/Pain, Scale 1-10 Al Hydroxide/Mg Hydroxide (Magnesium Hydrox/Alum Hydrox 30 Ml Oral.Susp) 30 ml PO Q6H PRN PRN Reason: Heartburn/Nausea Hydroxyzine HCl (Hydroxyzine Hcl 25 Mg Tablet) 25 mg PO Q6H PRN PRN Reason: mild anxiety Magnesium Hydroxide (Milk Of Magnesia 30 Ml Oral.Susp) 30 ml PO DAILY PRN PRN Reason: Constipation Nicotine Polacrilex (Nicotine Polacrilex 2 Mg Gum) 4 mg BUCCAL Q2H PRN PRN Reason: Nicotine Cravings Trazodone HCl (Trazodone Hcl 50 Mg Tablet) 50 mg PO BEDTIME MRX1 PRN PRN Reason: Insomnia Home Medications ?Medication ?Instructions ?Recorded ?Confirmed ?Last Taken ?Type fluocinonide 0.05 % topical ml topical 12/07/20 06/04/22 Unknown History solution ketoconazole 2 % shampoo topical DIRECTED 12/07/20 06/04/22 Unknown History Physical Exam Vital Signs and Narrative: Alert and oriented X3, able to give good history. Weepy at times. Neuro: CN II-X11 intact, no deficits, visual acuity intact EYES: PERRLA, EOM intact ENT: Hearing intact, lips moist Cardiac: S1 S2 RRR, No ectopy Pulmonary: lungs clear to auscultation, No increased WOB. Abdominal: BS active in all 4 quadrants, no guarding or tenderness MSK: Strength 5/5 upper and lower extremities : Deferred Extremities: No edema in lower extremities Psych: Cooperative with exam, weepy Skin: Warm and dry, Intact Assessment and Plan (1) Anxiety and depression: Status: Acute Plan Depressive disorder/anxiety/suicidal ideation Plan per Psychiatry team Fibromyalgia Continue Lyrica Thank you for allowing me to participate in the care of this patient. Signing off at this time. Please reconsult of any acute concerns or issues arise
--- OUTSIDE RECORDS SUMMARY | 2025-03-22 16:24 | XMS_ITS | Encounter Summary ---
[facility] Organization [facility] Address [address] [place] [address] Care Team Providers Care Production Quality Manager Name Role Phone Otis Squires MD Primary Care Provider Reason for Visit * Reason Comments Suicidal Patient BIBA from a friends home in [place], with hx of cocaine use, last use yesterday at 6pm. Today patient contacted psychiatrist endorsing SI, patient has superficial cuts to her left wrist. Patient seeking support, patient denies HI. Encounter Details Date Type Department Care Team (Late st Contact Info) Description 03/20/2025 9:50 AM EDT - 03/22/2025 2:[address] [facility] Emergency [address] [place] [id number] Yani Garcia, DO [address] [place] [address] Sarabjit Steiner MD [address] [place] [address] Italo Cheung MD [address] [place] [address] Robin Dillard MD [address] [place] [address] Candido Purcell, DO [address] [place] [address] Suicidal behavior with attempted self-injury (CMS/HCC V24, CMS/HCC V28) (Primary Dx) Discharge Disposition: Psychiatric Hospital Social History Tobacco Use Types Packs/Day Years Used Date Smoking Tobacco: Never Smokeless Tobacco: Never Alcohol Use Standard Drinks/Week Comments Yes 0 (1 standard drink = 0.6 oz pur e alcohol) Comments Unknown Sex and Gender Information Value Date Recorded Sex Assigned at Not on file Legal Sex Female 10:10 PM EST Gender Identity Not on file Sexual Orientation Not on file documented as of this encounter Last Filed Vital Signs Vital Sign Reading Time Taken Comments Blood Pressure 118/74 03/22/2025 1:36 PM EDT Pulse 79 03/22/2025 1:36 PM EDT Temperature 36.8 ??C (98.3 ??F) 03/22/2025 1:36 PM ED T Respiratory Rate 16 03/22/2025 1:36 PM EDT Oxygen Saturation 99% 03/22/2025 1:36 PM EDT Inhaled Oxygen Concentration - - Weight 70.3 kg (155 lb) 03/20/2025 10:35 AM EDT Height 167.6 cm (5' 6 ) 03/20/2025 10:35 AM EDT Body Mass Index 25.02 03/20/2025 10:35 AM EDT documented in this encounter Medications at Time of Discharge DULoxetine (CYMBALTA) [address] capsule Take 1 capsule (30 mg total) by mouth 2 (two) times a day. 01/25/2025 clonazePAM (KlonoPIN) 0.5 mg tablet Take 1 tablet (0.5 mg total) by mouth 2 (two) times a day if needed for anxiety. Max Daily Amount: 1 mg pregabalin (LYRICA) 150 mg capsule Take 2 capsules (300 mg total) by mouth 1 (one) time each day. Max Daily Amount: 300 mg documented as of this encounter Discharge Disposition Disposition Code Departure Means Destination Comment s [facility] M 5 documented in this encounter Progress Notes * Candido Purcell, - 03/22/2025 10:40 AM EDT ED Course as of 03/22/25 1040 Sat Mar 20, 2025 1033 60-year-old female presented hospital today for suicidal attempt. Patient laceration does not appear to be deep on my examination. Will plan to dress this wound. Will plan to have crisis counselor evaluated patient at this time. She appears to be medically stable. She is clear from my standpoint. [TC] 1314 Patient was eval by crisis. Recommends involuntary bed search at this time for suicidal intent. Agreement with this plan. Patient be held here for bed search. [TC] 2123 Patient will be signed out to oncoming provider at this time. Pending bed search. [TC] 2205 I, Dr. Darius Steiner, have received signout for this patient from Dr Garcia at 2200 hrs. The patient is currently pending inpatient psychiatric bed search. No issues during my shift. Anticipate signout to Dr. Italo Cheung at 2300 hrs. [MG] Sun Mar 21, 2025 1511 I, Dr. Darius Steiner, have received signout for this patient from Dr. Dillard at 1500 hrs. The patient is currently pending inpatient psychiatric bed search. No issues during my shift. Anticipate sign out to Dr. Italo Cheung at 2300 hrs. [MG] [address] Steiner. [PP] ED Course User Index [MG] Sarabjit Steiner MD [PP] Robin Dillard MD [TC] Yani Garcia DO Clinical Impressions as of 03/22/25 1040 Suicidal behavior with attempted self-injury (CMS/[facility] V24, CMS/[facility] V28) Transfer to Another Facility 1. Suicidal behavior with attempted self-injury (CMS/HCC V24, CMS/[facility] V28) Procedures * Liliana Lamar - 03/22/2025 10:26 AM EDT Patient accepted to [facility], unit M5, by Dr Dominic Rincon for today 03/22/25; ETA setfor 2:30pm * Sarabjit Steiner MD - 03/21/2025 3:12 PM EDT ED Course as of [id number] Sat Mar 20, 2025 1033 60-year-old female presented hospital today for suicidal attempt. Patient laceration does not appear to be deep on my examination. Will plan to dress this wound. Will plan to have crisis counselor evaluated patient at this time. She appears to be medically stable. She is clear from my standpoint. [TC] 1314 Patient was eval by crisis. Recommends involuntary bed search at this time for suicidal intent. Agreement with this plan. Patient be held here for bed search. [TC] 3 Patient will be signed out to oncoming provider at this time. Pending bed search. [TC] 2205 I, Dr. Darius Steiner, have received signout for this patient from Dr Garcia at 2200 hrs. The patient is currently pending inpatient psychiatric bed search. No issues during my shift. Anticipate signout to Dr. Italo Cheung at 2300 hrs. [MG] [place] Mar 21, 2025 1511 I, Dr. Darius Steiner, have received signout for this patient from Dr. Dillard at 1500 hrs. The patient is currently pending inpatient psychiatric bed search. No issues during my shift. Anticipate sign out to Dr. Italo Cheung at 2300 hrs. [MG] [address] Steiner. [PP] ED Course User Index [MG] Sarabjit Steiner MD [PP] Robin Dillard MD [TC] Yani Garcia, DO Clinical Impressions as of 03/21/252238 Suicidal behavior with attempted self-injury (CMS/HCC V24, CMS/[facility] V28) Send to Specialty Department 1. Suicidal behavior with attempted self-injury (CMS/HCC V24, CMS/HCC V28) Procedures Abbie Hua * Sarabjit Steiner MD - 03/20/2025 10:07 PM EDT ED Course as of 03/21/252238 [facility] Mar 20, 2025 1033 60-year-old female presented hospital today for suicidal attempt. Patient laceration does not appear to be deep on my examination. Will plan to dress this wound. Will plan to have crisis counselor evaluated patient at this time. She appears to be medically stable. She is clear from my standpoint. [TC] 1314 Patient was eval by crisis. Recommends involuntary bed search at this time for suicidal intent. Agreement with this plan. Patient be held here for bed search. [TC] 2122 Patient will be signed out to oncoming provider at this time. Pending bed search. [TC] 2205 I, Dr. Darius Steiner, have received signout for this patient from Dr Garcia at 2200 hrs. The patient is currently pending inpatient psychiatric bed search. No issues during my shift. Anticipate signout to Dr. Italo Cheung at 2300 hrs. [MG] [place] Mar 21, 2025 1511 I, Dr. Darius Steiner, have received signout for this patient from Dr. Dillard at 1500 hrs. The patient is currently pending inpatient psychiatric bed search. No issues during my shift. Anticipate sign out to Dr. Italo Cheung at 2300 hrs. [MG] [address] Steiner. [PP] ED Course User Index [MG] Sarabjit Steiner MD [PP] Robin Dillard MD [TC] Yani Garcia, DO Clinical Impressions as of 03/21/252238 Suicidal behavior with attempted self-injury (CMS/HCC V24, CMS/HCC V28) Send to Specialty Department 1. Suicidal behavior with attempted self-injury (CMS/HCC V24, CMS/HCC V28) Procedures Abbie Mehta Javid * Karina Ybarra RN - 03/20/2025 6:22 PM EDT Patient has been calm and cooperative throughout shift. Patient has been tearful at times throughout the shift. Patient refused lunch tray but did eat 75% of her dinner tray. Patient did call husbandand was notably upset while on the phone. Patient has ambulated to the restroom three times throughout the shift, patient ambulated with a steady gait despite complaints of mid lower back pain. Patient was provided PRN anxiety medication at patients request for mild to moderate anxiety. Patient hasbeen mostly sleeping through out this RN's shift with periods of watching tv. Per patient request lights to room remained off. Currently patient resting comfortably with eyes closed, respirations even and unlabored. Patient remains on q15 minute checks. * Hillary Calderón NP - 03/20/2025 2:23 PM EDT Psychiatry Initial Intake Abbie [id number] female history of depression presented hospital today for suicidal attempt. Patient tried to cut her left wrist open. Patient states she has been feeling depressed patient did admit to suicidal attempt by cutting her left wrist. Subjective 03/20/2025 I got into another argument with my , he kicked me out. I did not want to lose my family but I don't know what to do HPI: Reports long time depression and anxiety with panic attacks. Increasing stress at work I am being targeted by my boss because I had a panic attack and have been missing work. I don't want to lose my job . Additional historical information includes: none Record Review: moderate Duration: 40 minutes Current Medications: Scheduled Meds: Continuous Infusions: PRN Meds: Stressors: conflict with , my boss is harassing me . Past Psychiatric History: Previous therapy: yes current therapist Previous psychiatric treatment and medication trials: yes - for approximately 11 years - currently on duloxetine nothing really and clonazepam once or twice a week for my anxiety Previous psychiatric hospitalizations: no Previous diagnoses: yes - anxiety and depression Previous suicide attempts: yes - I tried to take some pills but someone stopped me so I didn't do it History of violence: no Currently in treatment with Dr Frederick . 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 first thing in the morning to steady nerves,get rid of a hangover or get the day started: yes Use of OTC medications: not really Psychiatric Review Of Systems: Sleep: yes Appetite changes: no Weight changes: no Energy: yes Interest/pleasure/anhedonia: yes Somatic symptoms: no Anxiety/panic: yes Guilty/hopeless: yes Self-injurious behavior/risky behavior: yes, treid to cut myself Any drugs: yes Alcohol: yes Mental Status Exam: General Observations Appearance and Build: age appropriate and average build Demeanor: tearful Eye Contact: Average Activity: Average Speech: normal pitch, normal volume, and clear Behavior: cooperative Mood: depressed Affect: flat and mood-congruent Thought Process: poor concentration Thought Content: Delusions: none reported Other: none reported Self Abuse: suicidal (assess lethality if present): reports attempted to cut self , laceration noted on left wrist on arrival to ED Aggressive: none reported Cognition: Impairment of: attention/concentration Intelligence Estimate: average Sensorium/Orientation: person, place, time/date, and situation Perception: Hallucinations: none reported Other: none reported Insight/Judgment: age appropriate Elaboration of Positive Mental Status Findings: Reports continued depression despite medication from psychiatric providers. SI with attempt to cut wrist last night , per patient occurred after an argument with SIGECASUSANA Sleep: $-5 hours usually Interest: nothing anymore Guilt: Yes about everything Energy: Yes. 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 rate 18, height 1.676 m (66 ), weight 70.3 kg (155 lb), SpO2 96%. Lab Results: Results for orders placed or performed during the hospital encounter of 03/20/25 Comprehensive metabolic panel Collection Time: 03/20/25 10:17 AM Result Value Ref Range Sodium 142 133 - 145 mmol/L Potassium 3.6 3.5 - 5.5 mmol/L Chloride 108 96 - 110 mmol/L CO2 25 21 - 32 mmol/L Anion Gap 9 3 - 11 Glucose 108 (H) 70 - 100 mg/dL BUN 9 5 - 25 mg/dL Creatinine 0.78 0.50 - 1.10 mg/dL eGFR 86 >=60 mL/min/1.73m2 BUN/Creatinine Ratio 11.5 Calcium 9.0 8.5 - 10.5 mg/dL AST (SGOT) 25 10 - 42 unit/L ALT (SGPT) 27 10 - 60 unit/L Alkaline Phosphatase 74 42 - 121 unit/L Total Protein 7.1 6.0 - 8.0 g/dL Albumin 4.0 3.2 - 5.0 g/dL Total Bilirubin 0.4 0.0 - 1.4 mg/dL Ethanol Collection Time: 03/20/25 10:17 AM Result Value Ref Range Ethanol Level 78 (H) 0 - 10 mg/dL Acetaminophen level Collection Time: 03/20/25 10:17 AM Result Value Ref Range Acetaminophen Level <2.0 (L) 10.0 - 30.0 mcg/mL Salicylate level Collection Time: 03/20/25 10:17 AM Result Value Ref Range Salicylate Level <1.7 (L) 2.0 - 29.0 mg/dL Drug abuse screen 8a panel, urine Collection Time: 03/20/25 10:17 AM Result Value Ref Range Amphetamine Screen, Ur Negative Negative Barbiturate Screen, Ur Negative Negative Benzodiazepine Screen, Ur Negative Negative Cocaine Screen, Ur Positive (A) Negative Opiate Screen, Ur Negative Negative Cannabinoid (THC) Screen, Ur Positive (A) Negative Oxycodone Screen, Ur Negative Negative Fentanyl, Ur Negative Negative Buprenorphine screen, urine Collection Time: 03/20/25 10:17 AM Result Value Ref Range Buprenorphine Screen Urine Negative Negative Phencyclidine, urine Collection Time: 03/20/25 10:17 AM Result Value Ref Range PCP Scrn, Ur Negative Negative Methadone, urine Collection Time: 03/20/25 10:17 AM Result Value Ref Range Methadone Screen, Urine Negative Negative CBC auto differential Collection Time: 03/20/25 10:17 AM Result Value Ref Range WBC 9.5 4.8 - 10.8 K/mcL RBC 4.20 3.80 - 4.80 M/mcL Hemoglobin 13.1 11.5 - 16.0 g/dL Hematocrit 40.0 35.0 - 47.0 % MCV 94.6 79.0 - 98.0 FL MCH 31.0 27.0 - 32.0 pcg MCHC 32.8 32.0 - 37.0 g/dL RDW 12.1 11.0 - 15.0 % Platelets 286 130 - 400 K/mcL MPV 10.4 7.0 - 11.0 FL NRBC 0.0 <1.0 % NRBC Absolute 0.00 <0.10 K/mcL Neutrophils Relative 79.5 % Lymphocytes Relative 13.2 % Monocytes Relative 5.6 % Eosinophils Relative 0.5 % Basophils Relative 0.8 % Immature Granulocytes Relative 0.4 % Neutrophils Absolute 7.50 (H) 1.50 - 7.00 K/mcL Lymphocytes Absolute 1.25 1.00 - 5.00 K/mcL Monocytes Absolute 0.53 0.20 - 1.00 K/mcL Eosinophils Absolute 0.05 0.00 - 0.50 K/mcL Basophils Absolute 0.08 0.00 - 0.20 K/mcL Immature Granulocytes Absolute 0.04 (H) 0.00 - 0.03 K/mcL Medications: No current facility-administered medications for this encounter. Current Outpatient Medications Medication Sig Dispense Refill DULoxetine (CYMBALTA) [address] capsule Take 1 capsule (30 mg total) by mouth 2 (two) times a day. clonazePAM (KlonoPIN) 0.5 mg tablet Take 1 tablet (0.5 mg total) by mouth 2 (two) times a day if needed for anxiety. Max Daily Amount: 1 mg pregabalin (LYRICA) 150 mg capsule Take 2 capsules (300 mg total) by mouth 1 (one) time each day. Max Daily Amount: 300 mg Diagnosis/Assessment/Plan: Depression, recurrent Anxiety Ms Hua reports feeling depressed long time reports that current medications just make me feel even, I never can feel happy . Reports additional stressors include pain with fibromyalgia, struggling at work and relationship with . Suicidal ideation occurred last evening after argument with I don't know what to do, I don't want to lose my family, lose my job but I don't know what to do Recommendations 1) Continue current psychotropic medications at this time. 2) Collaborate with team for inpatient psychiatric hospitalization for patient safety, mood stabilization and medication management. Hillary Calderón NP * Karina Ybarra RN - 03/20/2025 2:21 PM EDT Medication reconciliation completed with Ej located at [facility] [place]. * Karina Ybarra RN - 03/20/2025 9:53 AM EDT Patient JOSELINE from a friends home in [place], with hx of cocaine use, last use yesterday at 6pm. Today patient contacted psychiatrist endorsing SI, patient has superficial cuts to her left wrist. Patient seeking support, patient denies HI. A&Ox4 * Yani Garcia DO - 03/20/2025 9:46 AM EDT Emergency Medicine Note Patient Name: Abbie Hua Initial Evaluation: 03/20/2025 : 1965 Patient's PCP: Otis Squires MD Emergency Physician: Yani Garcia DO History of Present Illness Chief Complaint: Chief Complaint Patient presents with Suicidal Patient JOSELINE from a friends home in [place], with hx of cocaine use, last use yesterday at 6pm. Today patient contacted psychiatrist endorsing SI, patient has superficial cuts to her left wrist. Patient seeking support, patient denies HI. HPI: 60-year-old female history of depression presented hospital today for suicidal attempt. Patient tried to cut her left wrist open. Patient states she has been feeling depressed patient did admit to suicidal attempt by cutting her left wrist. She did not want to open up to me about why she is feeling more depressed lately. Denies any injury anywhere else in her body. ROS: I have performed a ROS with the pertinent positives and negatives documented in the history ofpresent illness. Previous History Past Medical History: Diagnosis Date Anxiety state DX:Anxiety state Depressive disorder DX:Depressive disorder Past Surgical History: Procedure Laterality Date CHOLECYSTECTOMY PROCEDURE: [place] LAPAROSCOPY SURG CHOLECYSTECTOMY COLONOSCOPY PROCEDURE: HISTORICAL COLONOSCOPY COLONOSCOPY W/ POLYPECTOMY PROCEDURE: [place] COLSC FLX W/RMVL OF TUMOR POLYP LESION SNARE TQ HYSTERECTOMY PROCEDURE: HISTORICAL HYSTERECTOMY OTHER SURGICAL HISTORY 2016 PROCEDURE: [place] EGD BALLOON DILATION ESOPHAGUS <30 MM DIAM OTHER SURGICAL HISTORY PROCEDURE: [place] EXC CYST/ABERRANT BREAST TISSUE OPEN 1/> LESION Social History Tobacco Use Smoking status: Never Smokeless tobacco: Never Substance Use Topics Alcohol use: Yes Drug use: Never Family History Problem Relation Name Age of Onset Stroke Father Colon cancer Mother has No Known Allergies. No current facility-administered medications on file prior to encounter. Current Outpatient Medications on File Prior to Encounter Medication Sig Dispense Refill DULoxetine (CYMBALTA) [address] capsule Take 1 capsule (30 mg total) by mouth 2 (two) times a day. clonazePAM (KlonoPIN) 0.5 mg tablet Take 1 tablet (0.5 mg total) by mouth 2 (two) times a day if needed for anxiety. Max Daily Amount: 1 mg pregabalin (LYRICA) 150 mg capsule Take 2 capsules (300 mg total) by mouth 1 (one) time each day. Max Daily Amount: 300 mg Physical Exam ED Triage Vitals [03/20/25 1002] Temp Heart Rate Resp BP 37 ??C (98.6 ??F) 81 -- 135/79 SpO2 Temp src Heart Rate Source Patient Position 96 % -- -- -- BP Location FiO2 (%) -- -- General: Pleasant, no distress, interacting appropriately Head: Normacephalic, atraumatic ENT: oral mucosa moist, neck supple, no tracheal deviation Cardiovascular: regular rate, regular rhythm, no murmurs, rubbing, gallops Respiratory: CTAB, no wheeze, rales, rhonchi Neurological: Awake and alert, no facial droop noted Skin: Warm and dry Psychiatric: Endorses suicidal ideation Results Labs Reviewed COMPREHENSIVE METABOLIC PANEL - Abnormal Result Value Sodium 142 Potassium 3.6 Chloride 108 CO2 25 Anion Gap 9 Glucose 108 (*) BUN 9 Creatinine 0.78 eGFR 86 BUN/Creatinine Ratio 11.5 Calcium 9.0 AST (SGOT) 25 ALT (SGPT) 27 Alkaline Phosphatase 74 Total Protein 7.1 Albumin 4.0 Total Bilirubin 0.4 ETHANOL - Abnormal Ethanol Level 78 (*) ACETAMINOPHEN LEVEL - Abnormal Acetaminophen Level <2.0 (*) SALICYLATE LEVEL - Abnormal Salicylate Level <1.7 (*) DRUG ABUSE SCREEN 8A PANEL, URINE - Abnormal Amphetamine Screen, Ur Negative Barbiturate Screen, Ur Negative Benzodiazepine Screen, Ur Negative Cocaine Screen, Ur Positive (*) Opiate Screen, Ur Negative Cannabinoid (THC) Screen, Ur Positive (*) Oxycodone Screen, Ur Negative Fentanyl, Ur Negative Narrative: Assay cutoffs: Amphetamines 1000 ng/mL Barbiturates 200 ng/mL Benzodiazepines 200 ng/mL Cocaine 300 ng/mL Fentanyl 1 ng/mL Opiates 300 ng/mL Oxycodone 100 ng/mL THC 50 ng/mL Semi-quantitative assay for screening purposes only. Unconfirmed screening result should not be used for non-medical purposes. *ALTERNATE METHOD CONFIRMATION DONE UPON REQUEST ONLY* CBC WITH AUTO DIFFERENTIAL - Abnormal WBC 9.5 RBC 4.20 Hemoglobin 13.1 Hematocrit 40.0 MCV 94.6 MCH 31.0 MCHC 32.8 RDW 12.1 Platelets 286 MPV 10.4 NRBC 0.0 NRBC Absolute 0.00 Neutrophils Relative 79.5 Lymphocytes Relative 13.2 Monocytes Relative 5.6 Eosinophils Relative 0.5 Basophils Relative 0.8 Immature Granulocytes Relative 0.4 Neutrophils Absolute 7.50 (*) Lymphocytes Absolute 1.25 Monocytes Absolute 0.53 Eosinophils Absolute 0.05 Basophils Absolute 0.08 Immature Granulocytes Absolute 0.04 (*) BUPRENORPHINE SCREEN, URINE - Normal Buprenorphine Screen Urine Negative Narrative: Assay cutoff 5 ng/mL Semi-quantitative assay for screening purposes only. Unconfirmed screening result should not be used for non-medical purposes. *ALTERNATE METHOD CONFIRMATION DONE UPON REQUEST ONLY* PHENCYCLIDINE, URINE - Normal PCP Scrn, Ur Negative METHADONE SCREEN, URINE - Normal Methadone Screen, Urine Negative CBC AND DIFFERENTIAL Narrative: The following orders were created for panel order CBC and differential. Procedure Abnormality Status --------- ------ CBC auto differential[[id number]] Abnormal Final result Please view results for these tests on the individual orders. Abnormal Labs Reviewed COMPREHENSIVE METABOLIC PANEL - Abnormal; Notable for the following components: Result Value Glucose 108 (*) All other components within normal limits ETHANOL - Abnormal; Notable for the following components: Ethanol Level 78 (*) All other components within normal limits ACETAMINOPHEN LEVEL - Abnormal; Notable for the following components: Acetaminophen Level <2.0 (*) All other components within normal limits SALICYLATE LEVEL - Abnormal; Notable for the following components: Salicylate Level <1.7 (*) All other components within normal limits DRUG ABUSE SCREEN 8A PANEL, URINE - Abnormal; Notable for the following components: Cocaine Screen, Ur Positive (*) Cannabinoid (THC) Screen, Ur Positive (*) All other components within normal limits Narrative: Assay cutoffs: Amphetamines 1000 ng/mL Barbiturates 200 ng/mL Benzodiazepines 200 ng/mL Cocaine 300 ng/mL Fentanyl 1 ng/mL Opiates 300 ng/mL Oxycodone 100 ng/mL THC 50 ng/mL Semi-quantitative assay for screening purposes only. Unconfirmed screening result should not be used for non-medical purposes. *ALTERNATE METHOD CONFIRMATION DONE UPON REQUEST ONLY* CBC WITH AUTO DIFFERENTIAL - Abnormal; Notable for the following components: Neutrophils Absolute 7.50 (*) Immature Granulocytes Absolute 0.04 (*) All other components within normal limits No orders to display I have discussed the incidental/abnormal imaging and/or lab abnormalities with the patient and haveinstructed them the need for further evaluation and workup with their primary care doctor. I have provided the patient with a paper copy of the abnormality. The laboratory results, imaging results and other diagnostic exam results were reviewed in the EMR. Medical Decision Making Medications clonazePAM (KlonoPIN) tablet 0.5 mg (0.5 mg oral Given 03/20/25 144) DULoxetine (CYMBALTA) DR capsule 30 mg (30 mg oral Given 03/20/25 1445) pregabalin (LYRICA) capsule 300 mg (300 mg oral Given 03/20/25 1445) ED Course as of 03/20/252122 Sat Mar 20, 2025 1033 60-year-old female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 (CMS/[facility] V24, CMS/[facility] V28)- Primary documented in this encounter Administered Medications Active Administered Medications - up to 3 most recent administrations Medication Order MAR Action Action Date Dose Rate Site clonazePAM (KlonoPIN) tablet 0.5 mg 0.5 mg, oral, 2 times daily PRN, anxiety, Starting on 03/20/25 at 1425, HAZARDOUS Drug Precautions - Low Risk (Category A/NIOSH Group 3) Reproductive Risk Only: - Single pair of ASTM standard [id number] certified chemotherapy gloves - Eye protection (goggles or face shield) required only with a potential for facial contact (i.e. concern for spitting or vomiting of the dose during or after administration) - Staff at reproductive risk (actively trying to conceive, or may be become , and ): chemo certified gown and an N95 respirator required when crushing meds (crushing of tabs allowed only in closed pouches) or opening of capsules only for allowable dosage forms Given 03/22/2025 1:34 PM EDT 0.5 mg Given 03/22/2025 7:38 AM EDT 0.5 mg Given 03/20/2025 2:45 PM EDT 0.5 mg DULoxetine (CYMBALTA) DR capsule 30 mg 30 mg, oral, 2 times daily, First dose on 03/20/25 at 1426, Do not crush or chew. Given 03/22/2025 7:38 AM EDT 30 mg Given 03/21/2025 9:51 PM EDT 30 mg Given 03/21/2025 9:21 AM EDT 30 mg pregabalin (LYRICA) capsule 300 mg 300 mg, oral, Daily, First dose on 03/20/25 at 1426 Given 03/22/2025 7:39 AM EDT 300 mg Given 03/21/2025 9:21 AM EDT 300 mg Given 03/20/2025 2:45 PM EDT 300 mg documented in this encounter Historical Medications * This list may reflect changes made after this encounter. pregabalin (LYRICA) 150 mg capsule Take 2 capsules (300 mg total) by mouth 1 (one) time each day. Max Daily Amount: 300 mg DULoxetine (CYMBALTA) [address] capsule Take 1 capsule (30 mg total) by mouth 2 (two) times a day. 01/25/2025 clonazePAM (KlonoPIN) 0.5 mg tablet Take 1 tablet (0.5 mg total) by mouth 2 (two) times a day if needed for anxiety. Max Daily Amount: 1 mg added in this encounter Active and Recently Administered Medications Times are shown in EDT. Scheduled Medication Order 03/20/2025 03/21/2025 03/22/2025 DULoxetine (CYMBALTA) DR capsule 30 mg 30 mg, oral, 2 times daily, First dose on 03/20/25 at 1426, Do not crush or chew. 1445 (Given - Provider: Karina Ybarra RN)2219 (Not Given - Provider: Debby Ro RN - Reason: Other - Comment: skip due to afternoon dose) 0921 (Given - Provider: Fiona Alberto RN)215 (Given - Provider: Angy Silva RN) 0738 (Given - Provider: Milena Chavez RN - Comment: given am meds early as pt recieving benzodiazepine at this time and may fall asleep)0911 (Canceled Entry - Provider: Milena Chavez RN - Comment: given dose early)2100 (Due) pregabalin (LYRICA) capsule 300 mg 300 mg, oral, Daily, First dose on 03/20/25 at 1426 1445 (Given - Provider: Karina Ybarra RN) 0921 (Given - Provider: Fiona Alberto RN) 0739 (Given - Provider: Milena Chavez RN - Comment: given am meds early as pt recieving benzodiazepine at this time and may fall asleep)0911 (Canceled Entry - Provider: Milena Chavez RN - Comment: given dose early) PRN Medication Order 03/20/2025 03/21/2025 03/22/2025 clonazePAM (KlonoPIN) tablet 0.5 mg 0.5 mg, oral, 2 times daily PRN, anxiety, Starting on 03/20/25 at 1425, HAZARDOUS Drug Precautions - Low Risk (Category A/NIOSH Group 3) Reproductive Risk Only: - Single pair of ASTM standard D6978 certified chemotherapy gloves - Eye protection (goggles or face shield) required only with a potential for facial contact (i.e. concern for spitting or vomiting of the dose during or after administration) - Staff at reproductive risk (actively trying to conceive, or may be become , and ): chemo certified gown and an N95 respirator required when crushing meds (crushing of tabs allowed only in closed pouches) or opening of capsules only for allowable dosage forms 1445 (Given - Provider: Karina Ybarra RN) 0738 (Given - Provider: Milena Chavez RN)1334 (Given - Provider: Milena Chavez RN) documented in this encounter Orders Diet Count Last Ordered Date First Orde red Date ADULT DIET 1 03/20/2025 Nursing Count Last Ordered Date First Orde red Date VITAL SIGNS 1 03/22/2025 Consult Count Last Ordered Date First Orde red Date IP CONSULT TO AGRONOMY SPECIALIST 1 03/20/2025 Precaution Count Last Ordered Date First Orde red Date SUICIDE PRECAUTIONS 1 03/20/2025 Privilege Level Count Last Ordered Date First O rdered Date PATIENT WAREHOUSE HELPER 1 03/20/2025 documented in this encounter Additional Health Concerns Infection Onset Date Last Indicated Resolved Time Respiratory Rule-Out 03/22/2025 03/22/2025 025 4:55 AM EDT documented as of this encounter Care Teams Production Quality Manager Relationship Specialty Start Date End Date Otis Squires MD [address] [place] [address] Dr Giovanni MA PCP - General 04/07/21 documented as of this encounter
[2025-03-22 17:03] VITALS: BP 128/80; PULSE 84; RESP 16; TEMP 36.6; O2SAT 98
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
[2025-03-22 19:04] VITALS: BMI 23.0
[2025-03-22 20:00] VITALS: BP 123/74; PULSE 74; RESP 16; TEMP 36.8; O2SAT 96
[2025-03-22] MEDS: clonazePAM 0.5 MG TABLET PO (21:44)
[2025-03-22] MEDS: DULoxetine HCl 30 MG CAPSULE.DR PO (21:44)
[2025-03-23 07:56] VITALS: BP 99/70; PULSE 91; RESP 18; TEMP 36.4; O2SAT 96
[2025-03-23] MEDS: DULoxetine HCl 30 MG CAPSULE.DR PO (08:32)
[2025-03-23] MEDS: Pregabalin 100 MG CAPSULE 300 MG PO (08:32)
[2025-03-23 08:58] LABS: Estimated Average Glucose 105 mg/dL; Hemoglobin A1c % 5.3 % (<6.0)
[2025-03-23 09:04] LABS: Cholesterol 177 mg/dL (<200); HDL Cholesterol 79 mg/dL (>40); LDL Cholesterol Calculated 86 mg/dL (<100); Triglycerides 64 mg/dL (<150)
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
[2025-03-23 09:27] LABS: Folate 12.8 ng/mL (> or = 4.0); Vitamin B12 562 pg/mL (200-900)
[2025-03-23 09:44] LABS: Free T4 (Free Thyroxine) 1.11 ng/dL (0.71-1.85); Thyroid Stimulating Hormone 1.04 uIU/mL (0.32-4.0)
[2025-03-23] MEDS: Magnesium Hydrox/Alum Hydrox 30 ML ORAL.SUSP PO (13:58)
[2025-03-23] MEDS: clonazePAM 0.5 MG TABLET PO ×2 (14:04→20:15)
[2025-03-23] MEDS: busPIRone HCl 5 MG TABLET PO ×2 (14:55→20:15)
--- NOTE | 2025-03-23 15:37 | MHC.RECOVRN ---
Met with pt in 511-2 after consult placed to Addiction Medicine for Cocaine Use Disorder. Chart review completed . Pt was a direct admit to inpt. psych from [facility] following being found by PD attempting self harm. Pt admitted for treatment and stabilization. Pt has a reported h/o recurrent cocaine use. Pt is sitting on bed during the meeting awake and alert and cooperative. She is tearful at times and has some periods of anxiety. ? She stated that she started use at age 15 and reports use has always been episodic. She did identify that her cocaine use usually follows drinking but denies that ETOH use is an issue. She reports using cocaine approx 1x/mo. Route of cocaine use not disclosed. Pt denies any h/o [facility] treatment and states that I do not want to lose my family. I am ready . T/W reviewed outpatient treatment and supports with pt. including IOP, Fellowship, StUD clinic, and medications for substance use. Pt's goal is to stop cocaine completely but hopes to still drink. Harm reduction also discussed with pt. Pt declined any referrals/appointments to medication for stimulant use disorder providers and declined medications for stimulant use disorder at this time. She took resources and verbalized ?interest in and [place] recovery although declined my offer to send referrals at this time. Pt. denies any further needs/questions/concerns at this time. ACS services available as needed.?
[2025-03-23 20:00] VITALS: BP 123/68; PULSE 72; TEMP 36.6; O2SAT 96
[2025-03-23] MEDS: DULoxetine HCl 20 MG CAPSULE.DR 40 MG PO (20:15)
[2025-03-23] MEDS: Acetaminophen 325 MG TABLET 650 MG PO (20:15)
[2025-03-24 07:58] VITALS: BP 107/61; PULSE 71; RESP 16; TEMP 36.6; O2SAT 98
[2025-03-24] MEDS: Famotidine 20 MG TABLET PO (08:17)
[2025-03-24] MEDS: busPIRone HCl 5 MG TABLET PO (08:17)
[2025-03-24] MEDS: Pregabalin 100 MG CAPSULE 300 MG PO (08:17)
[2025-03-24] MEDS: DULoxetine HCl 20 MG CAPSULE.DR 40 MG PO ×2 (08:17→20:30)
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
[2025-03-24] MEDS: clonazePAM 0.5 MG TABLET PO ×2 (11:23→20:30)
[2025-03-24 19:43] VITALS: BP 114/72; PULSE 71; TEMP 36.4; O2SAT 96
[2025-03-24] MEDS: busPIRone HCl 5 MG TABLET 7.5 MG PO (20:30)
[2025-03-25 07:00] VITALS: BMI 23.3
[2025-03-25 08:00] VITALS: BP 103/62; PULSE 75; RESP 16; TEMP 36.8; O2SAT 97
[2025-03-25] MEDS: busPIRone HCl 5 MG TABLET 7.5 MG PO ×2 (08:31→20:37)
[2025-03-25] MEDS: DULoxetine HCl 20 MG CAPSULE.DR 40 MG PO ×2 (08:31→20:37)
[2025-03-25] MEDS: Pregabalin 100 MG CAPSULE 300 MG PO (08:32)
[2025-03-25] MEDS: Famotidine 20 MG TABLET PO (08:32)
[2025-03-25] MEDS: clonazePAM 0.5 MG TABLET PO ×2 (08:36→20:41)
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
[2025-03-25] MEDS: Acetaminophen 325 MG TABLET 650 MG PO (16:34)
[2025-03-25 20:00] VITALS: BP 100/67; PULSE 82; RESP 16; TEMP 36.6; O2SAT 96
[2025-03-26 01:34] VITALS: BMI 26.6
[2025-03-26 07:55] VITALS: BP 113/73; PULSE 69; RESP 16; TEMP 36.6; O2SAT 97
[2025-03-26] MEDS: Famotidine 20 MG TABLET PO (08:33)
[2025-03-26] MEDS: Pregabalin 100 MG CAPSULE 300 MG PO (08:33)
[2025-03-26] MEDS: DULoxetine HCl 20 MG CAPSULE.DR 40 MG PO (08:33)
[2025-03-26] MEDS: busPIRone HCl 5 MG TABLET 7.5 MG PO (08:33)
[2025-03-26] MEDS: clonazePAM 0.5 MG TABLET PO (08:37)
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
== END 2025-03-26 10:05 | disposition home or self-care (01) | DRG 754 ==
PROVIDERS: Clinical Nurse Specialist Psychiatric/Mental Health, Adult; Admitting Provider Psychiatry & Neurology Psychiatry; Visit Provider Psychiatry & Neurology Psychiatry
DX: F32.9 Major depressive disorder, single episode, unspecified (principal); F14.93 Cocaine use, unspecified with withdrawal; F41.9 Anxiety disorder, unspecified; F17.290 Nicotine dependence, other tobacco product, uncomplicated; K21.9 Gastro-esophageal reflux disease without esophagitis; Z71.6 Tobacco abuse counseling; M79.7 Fibromyalgia; Z62.810 Personal history of physical and sexual abuse in childhood; Z79.899 Other long term (current) drug therapy
CPT/HCPCS: 36415; 80061; 82607; 82746; 83036; 83735; 84439; 84443

== ENCOUNTER → 2025-03-22 14:38 | Outpatient (BNV) | payer OTHER, SELFPAY | PROVIDERS: Admitting Provider Psychiatry & Neurology Psychiatry; Visit Provider Nurse Practitioner Family | DX: F41.9 Anxiety disorder, unspecified (principal); F32.9 Major depressive disorder, single episode, unspecified | CPT/HCPCS: 99221 ==

== ENCOUNTER → 2025-03-22 14:38 | Outpatient (BNV) | payer OTHER, SELFPAY | PROVIDERS: Admitting Provider Psychiatry & Neurology Psychiatry; Visit Provider Nurse Practitioner Psychiatric/Mental Health | DX: F32.2 Major depressive disorder, single episode, severe without psychotic features (principal); F19.130 Other psychoactive substance abuse with withdrawal, uncomplicated; F41.9 Anxiety disorder, unspecified; K21.9 Gastro-esophageal reflux disease without esophagitis; M79.7 Fibromyalgia | CPT/HCPCS: 90792; 99232; 99238 ==

== ENCOUNTER 2025-08-24 11:35 | Outpatient (AMB) | payer OTHER, SELFPAY ==
--- NOTE | 2025-08-24 11:37 | MHC.PC.OV ---
Vital Signs 08/24/25 11:43 Height 5 ft 7 in Weight 153 lb BMI 24.0 BP 118/70 Blood Pressure Location Rt brachial Position Sitting Respiration 16 Pulse 61 Pulse Source Pulse Oximeter Temp 98.4 F Temp Source Temporal Artery Scan Pulse Oximetry (%) 94 Oxygen Delivery Method Room Air Intake Visit Reasons: f/u fibromyalgia /pain in right hip and knee Intake Note: Abbie presents in the office today for a follow up to fibromyalgia and pain in her right hip and knee. Patient had swelling in her right knee for over a month. Allergies Seasonal Allergies Allergy (Intermediate, Verified 08/24/25 11:40) Sneezing, watery eyes Medication List - Last Reconciled 08/24/25 by Otis Squires MD albuterol sulfate 90 mcg/actuation 2 puffs inhalation Q4-6H PRN 30 days buspirone 7.5 mg (1.5 x 5 mg) PO BID clonazepam 0.5 mg PO BID PRN 30 days duloxetine 40 mg (2 x 20 mg) PO BID famotidine 20 mg PO DAILY hydroxyzine HCl 50 mg (2 x 25 mg) PO Q6H PRN pregabalin 300 mg (2 x 150 mg) PO DAILY 3 months trazodone 50 mg PO BEDTIME MRX1 PRN Tobacco use date assessed: 08/24/25 Dental Screening Dental Screen Date: 08/24/25 Did you have a dental visit in the last 12 months?: No Did you have a dental problem in the last 6 months where you did not have access to dental care?: No Was dental information given to patient?: Patient declined HPI f/u fibromyalgia /pain in right hip and knee HPI Details 60 y/o female presents to f/u fibromyalgia, R hip pain/knee pain. She has been taking duloxetine, pregabalin as prescribed. Reports R knee swelling x1 month but has resolved. Does still have crepitus of R knee. Reports some fatigue. They note symptoms of sleep apnea and states she does snore. PFSH Medical History Bursitis IBS (irritable bowel syndrome) Depression Allergies Fibromyalgia Surgical History H/O: hysterectomy Hx of cholecystectomy History of breast lump removal Family History Mother Colon cancer Father Stroke Hypertension Social History (Updated 08/24/25 @ 11:43 by Laurence Torres CMA) Household Members: Spouse Housing: House Do you presently have visiting nurse or other home services: No Alcohol intake: current Alcohol intake frequency: holidays/special occasions only Alcohol type: hard liquor Patient Tobacco Use Status: Never used Tobacco e-Cigarette/Vaping Use: Currently Using Second Hand Smoke Exposure: No Substance Use Type: Marijuana service: No Current occupational status: employed Current occupational exposures/hazards: No Sexual orientation: Straight/Heterosexual Cognitive needs: No Hearing needs: No Vision needs: No Questionnaire PHQ-9 Over the last 2 weeks, how often have you been bothered by any of the following problems? 1. Little interest or pleasure in doing things: more than half the days 2. Feeling down, depressed, or hopeless: several days 3. Trouble falling or staying asleep, or sleeping too much: more than half the days 4. Feeling tired or having little energy: more than half the days 5. Poor appetite or overeating: more than half the days 6. Feeling bad about yourself - or that you are a failure or have let yourself or your family down: several days 7. Trouble concentrating on things, such as reading the newspaper or watching television: several days 8. Moving or speaking so slowly that other people could have noticed. Or the opposite - being so fidgety or restless that you have been moving around a lot more than usual: several days 9. Thoughts that you would be better off or of hurting yourself in some way: not at all Total score: 12 Depression Screening Interpretation: Positive Depression Screening Done: Yes 72575 - PHQ-9 Billing: Yes Source: Developed by Drs. Sreekanth Wallace, Vilma Danielle, Jean Carvalho and colleagues, with an educational newton from [employer]. Thrive Questionnaire Date Thrive assessed: 08/24/25 I am a: Patient What is your living situation today?: I have a steady place to live Within the past 12 months, did the food you bought not last and you didn't have the money to get more?: Never true Within the past 12 months, did you worry whether your food would run out before you got money to buy more?: Never true Do you have trouble paying for medicines?: No Do you have trouble getting transportation to medical appointments?: No Do you have trouble paying your heating and electricity bill?: No Do you have trouble taking care of your child, family member or friend?: No Do you have trouble with day-to-day activities such as bathing, preparing meals, shopping, managing finances, etc.?: No Are you currently unemployed and looking for a job?: Yes Are you interested in more education?: No Please select the resources that you would like help with: None Currently or been in a relationship where the following occur: No concerns reported THRIVE Score: 0 AUDIT C Alcohol Use Questionnaire (AUDIT-C) 1. How often do you have a drink containing alcohol?: Monthly or less 2. How many drinks containing alcohol do you have on a typical day when you are drinking?: 1 or 2 3. How often do you have six or more drinks on one occasion?: Never Total Score: 1 AWAIS-7 AMB Questionnaire AWAIS-7 Date AWAIS - 7 assessed: 08/24/25 Feeling nervous, anxious, or on edge: 2 = More than half the days Not being able to stop or control worryin = Several days Worrying too much about different things: 1 = Several days Trouble relaxin = Not at all Being so restless that it is hard to sit still: 0 = Not at all Becoming easily annoyed or irritable: 1 = Several days Feeling afraid as if something awful might happen: 0 = Not at all Total AWAIS-7 score (0-4 normal; 5-9 mild; 10-14 moderate; 15-21 severe): 5 Source: Developed by Drs. Sreekanth Wallace, Vilma Danielle, Jean Carvalho and colleagues, with an educational newton from [employer]. AWAIS-7 Assessment Billing AWAIS-7 Assessment Tool: AWAIS-7 Assessment 01822 Review of Systems Const Denies chills, Reports fatigue, Denies fever(s), Denies headache(s) and Denies weakness ENT Denies dizziness and Denies headache(s) Card Denies dyspnea Resp Denies cough, Denies dyspnea, Denies wheezing and Denies other (shortness of breath) Musc Details: Knee pain Denies numbness and Denies tingling Neuro Denies dizziness, Denies headache(s), Denies numbness, Denies tingling and Denies weakness Psych Denies anxiety and Denies depression Endo Reports fatigue Aller/Immun Denies wheezing Physical exam (Primary Care) Vital Signs: Last Vital Signs Temp 98.4 F 08/24/25 11:43 Pulse 61 08/24/25 11:43 Resp 16 08/24/25 11:43 BP 118/70 08/24/25 11:43 Pulse Ox 94 08/24/25 11:43 Oxygen Delivery Method Room Air 08/24/25 11:43 BMI result Body Mass Index 24.0 Tobacco/Smoking Status: Tobacco use Status Tobacco use date assessed 08/24/25 08/24/25 11:48 Patient Tobacco Use Status Never used Tobacco 08/24/25 11:43 e-Cigarette/Vaping Use Currently Using 08/24/25 11:43 PHQ-9: PHQ-9 Score PHQ-9: Total score 12 08/24/25 12:20 Depression Screening Interpretation: Positive Thrive Assessment: Date of Thrive Assessment Date Thrive assessed 08/24/25 08/24/25 11:48 Currently or been in a relationship where the following occur: No concerns reported Const General: well developed; No acute distress Nutritional Appearance: well nourished Orientation/consciousness: patient oriented x3 HENMT Head: Yes normocephalic and Yes atraumatic Eyes General: appearance normal, both eyes and all related structures Pupils: Equal, round and reactive pupils present EOM: EOMs intact bilaterally Resp Effort & Inspection: normal respiratory effort Neuro General: patient oriented x3 and gait normal Cranial nerves: Yes Equal, round and reactive pupils present Psych Affect: normal affect Coding Level of Care Code Est Pt Level 4 (40026) Diagnoses Fibromyalgia M79.7 Bilateral hip pain M25.551; M25.552 Pain and swelling of right knee M25.561; M25.461 Fatigue R53.83 Sleep apnea G47.30 Additional Codes AWAIS-7 Assessment Billing - AWAIS-7 Assessment Tool: AWAIS-7 Assessment 86298 ([id number]) PHQ-9 - 10797 - PHQ-9 Billing: Yes ([id number]) Assessment & Plan Assessment & Plan (1) Fibromyalgia: Code(s): M79.7 - Fibromyalgia Category: Medical Plan: Ongoing fibromyalgia. Patient is taking duloxetine and pregabalin as prescribed. Had been exercising more but less so lately. Continue current medications and we will to monitor (2) Bilateral hip pain: Code(s): M25.551 - Pain in right hip; M25.552 - Pain in left hip Category: Medical Plan: Bilateral hip pain and bursitis Continue NSAIDs as needed Adjust sleeping habits Referred to physiatry (3) Pain and swelling of right knee: Code(s): M25.561 - Pain in right knee; M25.461 - Effusion, right knee Category: Medical Plan: Pain and swelling of the right knee. This has resolved Still has crepitus at right knee Special tests are negative Check x-ray Check inflammatory markers Likely osteoarthritis Start NSAID Ice Exercise (4) Fatigue: Code(s): R53.83 - Other fatigue Category: Medical (5) Sleep apnea: Code(s): G47.30 - Sleep apnea, unspecified Category: Medical Plan Witnessed apneaic events at home Referred to sleep medicine Orders: Orders CRP High Sensitivity Today M25.461 - Effusion, right knee, M25.561 - Pain in right knee XR knee RT 3V Today M25.461 - Effusion, right knee, M25.561 - Pain in right knee Complete Blood Count Auto Diff Today M25.461 - Effusion, right knee, M25.561 - Pain in right knee, Z00.00 - Encounter for general adult medical examination without abnormal findings Erythrocyte Sedimentation Rate Today M25.461 - Effusion, right knee, M25.561 - Pain in right knee Comprehensive Met. Panel Today M25.461 - Effusion, right knee, M25.561 - Pain in right knee Rheumatoid Factor Today M25.461 - Effusion, right knee, M25.561 - Pain in right knee Referrals Physiatry Referral M25.461 - Effusion, right knee, M25.551 - Pain in right hip, M25.552 - Pain in left hip, M25.561 - Pain in right knee Sleep Medicine Referral G47.30 - Sleep apnea, unspecified Medications: New naproxen 500 mg PO BID PRN 60 tabs 3RF pain 30 days
[2025-08-24 11:43] VITALS: BP 118/70; PULSE 61; RESP 16; TEMP 36.9; O2SAT 94; BMI 24.0
== END 2025-08-24 12:45 | disposition home or self-care (01) ==
LOC: HO.HMCFM 11:35
PROVIDERS: PCP Family Medicine; Visit Provider Family Medicine
DX: M79.7 Fibromyalgia (principal); M25.551 Pain in right hip; M25.552 Pain in left hip; M25.561 Pain in right knee; M25.461 Effusion, right knee; R53.83 Other fatigue; G47.30 Sleep apnea, unspecified

== ENCOUNTER → 2025-08-24 11:35 | Outpatient (BNVA) | payer OTHER, SELFPAY | PROVIDERS: PCP Family Medicine; Visit Provider Family Medicine | DX: M79.7 Fibromyalgia (principal); M25.551 Pain in right hip; M25.552 Pain in left hip; M25.561 Pain in right knee; M25.461 Effusion, right knee; R53.83 Other fatigue; G47.30 Sleep apnea, unspecified | CPT/HCPCS: 96127; 99212 ==

== ENCOUNTER 2025-09-10 12:11 | Outpatient (REF) | payer OTHER, SELFPAY ==
--- NOTE | ~2025-09-10 | XR_ITS ---
EXAMINATION: XR KNEE 4 OR MORE VIEWS RIGHT HISTORY: M25.561 - Pain in right knee COMPARISON: There are no prior studies available for comparison. FINDINGS: Four views of the right knee are submitted. Osseous mineralization is normal. There is no fracture or dislocation. The joint spaces are preserved. The soft tissues are unremarkable. There is no joint effusion. XR/XR knee RT 4V IMPRESSION: Unremarkable examination of the right knee. Electronically signed by: Sreekanth Anglin MD 09/10/2025 12:31 PM [facility]
[2025-09-10 13:04] LABS: MANUAL DIFF FLAG NO
[2025-09-10 13:30] LABS: Hematocrit 39.4 % (37.0-47.0); Hemoglobin 12.9 g/dl (12.0-16.0); Imm Gran Abs Auto 0.01 X10*3/uL (0.00-0.03); Imm Gran Pct Auto 0.3 % (0.0-0.4); Lymphocytes Absolute Auto 1.3 X10*3/uL (1.2-4.9); Mean Corpuscular HGB Conc 32.7 g/dl (31.0-35.0); Mean Corpuscular Hemoglobin 30.6 pg (27.0-33.0); Mean Corpuscular Volume 93.6 fL (80.0-98.0); NRBC Abs Auto 0.000 X10*3/uL (0.0-0.012); NRBC Pct Auto 0.0 /100WBC (0.0-0.2); Platelet Count 280 X10*3/uL (160-400); Red Blood Count 4.21 X10*6/uL (4.20-5.50); White Blood Count 3.9 X10*3/uL (4.8-10.8)
[2025-09-10 14:07] LABS: Erythrocyte Sedimentation Rate 7 MM/HR (0-20)
[2025-09-10 18:45] LABS: Alanine Aminotransferase 20 U/L (0-31); Albumin Level 4.5 g/dL (3.5-5.0); Alkaline Phosphatase 58 U/L (39-117); Anion Gap 8 (12-20); Aspartate Amino Transferase 22 U/L (5-31); Blood Urea Nitrogen 17 mg/dL (9-16); Calcium 9.3 mg/dL (8.4-10.2); Carbon Dioxide 31 mmol/L (22-29); Chloride 107 mmol/L (96-108); Estimated Glomerular Filt Rate 60; Potassium 4.0 mmol/L (3.3-5.1); Sodium 142 mmol/L (135-145); Total Protein 6.8 g/dL (6.5-8.0)
== END 2025-09-10 12:12 | disposition home or self-care (01) ==
LOC: HO.HMGCX 12:11
PROVIDERS: PCP Family Medicine; Visit Provider Family Medicine
DX: Z00.00 Encounter for general adult medical examination without abnormal findings (principal); M25.561 Pain in right knee; M25.461 Effusion, right knee
CPT/HCPCS: 36415; 73564; 80053; 85025; 85652; 86141; 86431

== ENCOUNTER → 2025-09-10 12:15 | Outpatient (BNV) | payer OTHER, SELFPAY | PROVIDERS: PCP Family Medicine; Visit Provider Radiology Diagnostic Radiology | DX: M25.561 Pain in right knee (principal) | CPT/HCPCS: 73564 ==